=== PATIENT | female | born 1940 | race Caucasian/White ===

== ENCOUNTER → 2016-11-22 | Outpatient (CLI) | payer MEDICARE, OTHER | LOC: GMAM 15:16 | PROVIDERS: ATTEND Family Medicine | DX: N39.0 Urinary tract infection, site not specified (principal) ==

== ENCOUNTER → 2016-11-30 | Outpatient (CLI) | payer MEDICARE, OTHER | LOC: GMAM 14:58 | PROVIDERS: ATTEND Family Medicine | DX: I50.22 Chronic systolic (congestive) heart failure (principal); R07.89 Other chest pain ==

== ENCOUNTER → 2016-12-14 | Outpatient (CLI) | payer MEDICARE, OTHER | LOC: LAB.O 11:39 | PROVIDERS: ATTEND Internal Medicine Interventional Cardiology | DX: E03.9 Hypothyroidism, unspecified (principal) ==

== ENCOUNTER → 2017-01-07 | Outpatient (CLI) | payer MEDICARE, OTHER | END | disposition home or self-care (01) | LOC: GMAM 12:48 | PROVIDERS: ATTEND Family Medicine | DX: E55.9 Vitamin D deficiency, unspecified (principal) ==

== ENCOUNTER → 2017-05-09 | Outpatient (CLI) | payer MEDICARE, OTHER | END | disposition home or self-care (01) | LOC: GMAM 10:58 | PROVIDERS: ATTEND Family Medicine | DX: E53.8 Deficiency of other specified B group vitamins (principal); E55.9 Vitamin D deficiency, unspecified; N39.0 Urinary tract infection, site not specified ==

== ENCOUNTER 2017-05-24 19:38 | Emergency (ER) | payer MEDICARE, OTHER ==
[2017-05-24] MEDS ORDERED: HYDROcodone 5MG/APAP 325MG 1 EA TAB PO ONE (20:02)
[2017-05-24 20:20] VITALS: TEMP 98.2
--- NOTE | 2017-05-24 20:41 | RAD ---
EXAM DESCRIPTION: Hip,Right 2 Views (accession [id number]), Pelvis (accession [id number]) CLINICAL HISTORY: fall pain COMPARISON: None. FINDINGS: Two views of the right hip and frontal view of the pelvis were submitted. Calcifications within the pelvis may represent phleboliths. There is no acute fracture or dislocation. There is no radiopaque foreign body material. IMPRESSION: No acute abnormalities. Electronically signed by: Tyrone Galicia MD 05/24/2017 8:39 PM CDT
--- NOTE | 2017-05-24 20:41 | RAD ---
EXAM DESCRIPTION: Hip,Right 2 Views (accession [id number]), Pelvis (accession [id number]) CLINICAL HISTORY: fall pain COMPARISON: None. FINDINGS: Two views of the right hip and frontal view of the pelvis were submitted. Calcifications within the pelvis may represent phleboliths. There is no acute fracture or dislocation. There is no radiopaque foreign body material. IMPRESSION: No acute abnormalities. Electronically signed by: Tyrone Galicia MD 05/24/2017 8:39 PM CDT
--- NOTE | 2017-05-24 20:45 | RAD ---
EXAM DESCRIPTION: Ribs,Right 3 Views (accession [id number]), Scapula,Right (accession [id number]) CLINICAL HISTORY: fall pain COMPARISON: None. FINDINGS: Frontal view of the chest and two views of the right ribs were submitted. Cardiac silhouette is enlarged unchanged compared with the prior examination. There is atherosclerosis. Linear opacities within the lungs may represent scar. There is no focal parenchymal or pleural disease. There is no discrete displaced acute rib fracture. There is no discrete scapular fracture. IMPRESSION: No evidence of acute cardiopulmonary disease. Electronically signed by: Tyrone Galicia MD 05/24/2017 8:44 PM CDT
--- NOTE | 2017-05-24 20:45 | RAD ---
EXAM DESCRIPTION: Ribs,Right 3 Views (accession [id number]), Scapula,Right (accession [id number]) CLINICAL HISTORY: fall pain COMPARISON: None. FINDINGS: Frontal view of the chest and two views of the right ribs were submitted. Cardiac silhouette is enlarged unchanged compared with the prior examination. There is atherosclerosis. Linear opacities within the lungs may represent scar. There is no focal parenchymal or pleural disease. There is no discrete displaced acute rib fracture. There is no discrete scapular fracture. IMPRESSION: No evidence of acute cardiopulmonary disease. Electronically signed by: Tyrone Galicia MD 05/24/2017 8:44 PM CDT
--- NOTE | 2017-05-24 20:52 | RAD ---
EXAM DESCRIPTION: Lumbar Spine 3 Views CLINICAL HISTORY: 76 years ,Female fall pain COMPARISON: MRI 07/09/2015. TECHNIQUE: Three view FINDINGS: Straightening of the normal lordosis. There is narrowing of lumbar disc interspaces at L4-5 and particularly at L5-S1 where there is vacuum disc phenomenon and subchondral sclerosis. This appears similar to the previous examination. There is facet arthropathy at L4-5 and L5-S1. No acute fracture noted. There is bony demineralization and vascular calcification. Postsurgical changes in the left pelvis and in the gallbladder fossa. IMPRESSION: Degenerative changes at L4-5 and L5-S1 No acute fracture noted Electronically signed by: Gloria Childs 05/24/2017 8:50 PM CDT
--- NOTE | 2017-05-24 21:07 | ED.PDOC ---
History of Present Illness - General Chief Complaint: Trauma Stated Complaint: hip pain after morning fall Time Seen by Provider: 05/24/17 19:39 Source: patient Exam Limitations: no limitations - History of Present Illness Initial Comments: the patient is a 76-year-old female presenting to the emergency room after having fallen earlier in the day. She tried to catch herself but ended up hitting her right lateral torso on a stove while going down. She is having some pain over the right scapula as well as the right lateral rib cage. She is having some pain over the point of the iliac wing on the right. She is having some pain over the greater trochanter on the right. She has been ambulatory. She is breathing without difficulty. Vital signs are stable. There are no lacerations. I see no visible bruising. She does have some soreness to palpation over these areas. I feel no crepitus. No head injury and no neck pain. She is having some mild low back spasms as well. 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 Timing/Duration: 4-6 hours Severity: moderate Improving Factors: immobilization Worsening Factors: movement Associated Symptoms: chest pain Allergies/Adverse Reactions: Allergies Aspirin Allergy (Verified 09/11/14 17:41) Doxycycline Allergy (Verified 01/08/15 22:37) Influenza Vaccines Allergy (Verified 09/11/14 17:41) Macrolides Allergy (Verified 09/11/14 17:41) Penicillins Allergy (Verified 09/11/14 17:41) Risedronate [From Actonel] Allergy (Verified 09/11/14 17:41) Salicylates Allergy (Verified 09/11/14 17:41) Sulfa Drugs Allergy (Verified 09/11/14 17:41) Diphenhydramine [From Benadryl] Adverse Reaction (Verified 09/11/14 17:41) Lisinopril Adverse Reaction (Verified 09/11/14 17:41) Metformin and Related Adverse Reaction (Verified 09/11/14 17:41) Metoclopramide [From Reglan] Adverse Reaction (Verified 09/11/14 17:41) Raloxifene [From Evista] Adverse Reaction (Verified 09/11/14 17:41) Home Medications: Ambulatory Orders Allopurinol [Zyloprim] 300 mg PO BEDTIME 01/09/15 Flecainide [Tambocor] 50 mg PO BEDTIME 01/09/15 Gabapentin [Neurontin] 300 mg PO BEDTIME 01/09/15 Insulin Glargine [Lantus Solostar] 20 unit SC BEDTIME 01/09/15 Triamterene & Hydrochlorothiaz [Triamterene/Hydrochloroth 37.5-25 mg] 0.5 tab PO BEDTIME 01/09/15 Warfarin Sodium 2.5 mg PO MOWEFR@209901/09/15 Warfarin Sodium 5 mg PO SUTUTHSA@209901/09/15 Fluticasone/Salmeterol 250/50 [Advair 250/50 Diskus] 1 puff INH DAILY PRN Nitroglycerin 0.4 mg Tab [Nitrostat] 1 ea SL DAILY PRN 07/14/15 Tiotropium [place] Monohydrate [Spiriva Handihaler] 1 puff IN DAILY PRN Cephalexin [Keflex] 500 mg PO TID #21 cap 07/16/15 Digoxin [Lanoxin Tab] 0.125 mg PO DAILY@1200 #30 tab 07/16/15 Metoprolol Tartrate [Lopressor] 25 mg PO 1800 #30 tab 07/16/15 Metoprolol Tartrate [Lopressor] 50 mg PO DAILYBK #30 tab 07/16/15 Famotidine [Pepcid Tab] 20 mg PO DAILY #30 tab 11/27/15 Gsvlwytotjbwu-Brqr-Iuvibxadua [Fioricet] 1 ea PO Q8H PRN #21 tab 05/24/17 Review of Systems - Review of Systems Constitutional: States: no symptoms reported EENTM: States: no symptoms reported Respiratory: States: no symptoms reported Cardiology: States: chest pain Gastrointestinal/Abdominal: States: no symptoms reported Genitourinary: States: no symptoms reported Musculoskeletal: States: back pain, joint pain Skin: States: no symptoms reported Neurological: States: no symptoms reported Endocrine: States: no symptoms reported All other Systems: No Change from Baseline Past Medical History (General) - Patient Medical History Hx Seizures: No Hx Stroke: No Hx Asthma: No Hx of COPD: Yes Hx Cardiac Disorders: Yes - a-fib Hx Congestive Heart Failure: No Hx Pacemaker: No Hx Hypertension: Yes Hx Diabetes: Yes Hx MRSA: Yes - Nasal Swab 2014 Surgical History: cholecystectomy, Hysterectomy - Vaccination History Hx Tetanus, Diphtheria Vaccination: Yes Hx Influenza Vaccination: Yes Hx Pneumococcal Vaccination: Yes - Social History Hx Tobacco Use: No Hx Chewing Tobacco Use: No Hx Alcohol Use: No Hx Substance Use: No Hx Substance Use Treatment: No Hx Depression: No Hx Physical Abuse: No Hx Emotional Abuse: No Hx Suspected Abuse: No - Female History Patient is a Female of Child Bearing Age (10 -59 yrs old): No Patient : No Family Medical History - Family History Mother Living Status: Hx Cardiac Disease: Yes Father Living Status: Hx Cardiac Disease: Yes Hx Family;Other: of brain aneurysm Physical Exam - Physical Exam General Appearance: Alert, No apparent distress Eye Exam: bilateral normal Ears, Nose, Throat: hearing grossly normal, normal ENT inspection, normal pharynx Neck: full range of motion, supple, normal inspection Respiratory: lungs clear, normal breath sounds, no respiratory distress, no accessory muscle use, other - right lateral chest wall is uncomfortable to palpation. No obvious crepitus. No obvious deformity. No bruising and no lacerations. Cardiovascular/Chest: normal peripheral pulses, regular rate, rhythm, no edema Peripheral Pulses: radial,right: 2+, radial,left: 2+, dorsalis pedis,right: 2+, dorsalis pedis,left: 2+, posterior tibialis,right: 2+, posterior tibialis,left: 2+ Gastrointestinal/Abdominal: non tender, soft Rectal Exam: deferred Back Exam: other - mild paraspinal discomfort palpation adjacent to L3-L4 bilaterally. No step-off is noted. No spinal tenderness. Extremity: normal range of motion, normal inspection, no pedal edema, normal capillary refill, other - see history of present illness Neurologic: reporter II-XII nml as tested, alert, normal mood/affect, oriented x 3 Skin Exam: normal color - numerous chronic lesions and moles are present. Comments: Vital Signs - 24 hr 05/24/17 20:15 Temperature 98.2 F Pulse Rate [ 71 Left] Respiratory 20 Rate Blood Pressure 135/59 [Right Arm] O2 Sat by Pulse 95 Oximetry Progress - Progress Progress: 05/24/17 21:09 the patient is a 76-year-old female presenting to the emergency room secondary to a fall with multiple areas of discomfort secondary to the fall. X- rays of the right scapula, chest, pelvis and hip as well as the lumbar spine show no evidence of any new fracture or dislocation. She does have chronic arthritic changes. The patient will be written for Fioricet for as needed use over the next few days for pain control. Additionally she can take one Aleve twice daily with food for the next 2 days to help reduce discomfort. Topical heat may help reduce discomfort. She needs to ambulate carefully to prevent further falls.. She should probably follow up with her primary care doctor early next week. - Results/Orders Results/Orders: x-rays of the lumbar spine, right scapula, right rib cage, pelvis and right hip show no evidence of acute fracture or dislocation. No pneumothorax. Departure - Departure Clinical Impression: Contusion of rib Qualifiers: Encounter type: initial encounter Laterality: right Qualified Code(s): S20.211A - Contusion of right front wall of thorax, initial encounter Fall in home Qualifiers: Encounter type: initial encounter Qualified Code(s): W19.XXXA - Unspecified fall, initial encounter Disposition: Discharge to Home or Self Care Condition: Fair Departure Forms: ED Discharge - Pt. Copy, Patient Portal Self Enrollment Diet: diabetic diet Activity: increase activity as tolerated Referrals: Deepak Ramsay MD [Primary Care Provider] - 1-2 Weeks Prescriptions: Tmtrxykxohsmi-Ubcn-Tvehyfdruw [Fioricet] 1 ea PO Q8H PRN #21 tab PRN Reason: Pain Home Medications: Ambulatory Orders Allopurinol [Zyloprim] 300 mg PO BEDTIME 01/09/15 Flecainide [Tambocor] 50 mg PO BEDTIME 01/09/15 Gabapentin [Neurontin] 300 mg PO BEDTIME 01/09/15 Insulin Glargine [Lantus Solostar] 20 unit SC BEDTIME 01/09/15 Triamterene & Hydrochlorothiaz [Triamterene/Hydrochloroth 37.5-25 mg] 0.5 tab PO BEDTIME 01/09/15 Warfarin Sodium 2.5 mg PO MOWEFR@209901/09/15 Warfarin Sodium 5 mg PO SUTUTHSA@209901/09/15 Fluticasone/Salmeterol 250/50 [Advair 250/50 Diskus] 1 puff INH DAILY PRN Nitroglycerin 0.4 mg Tab [Nitrostat] 1 ea SL DAILY PRN 07/14/15 Tiotropium [place] Monohydrate [Spiriva Handihaler] 1 puff IN DAILY PRN Cephalexin [Keflex] 500 mg PO TID #21 cap 07/16/15 Digoxin [Lanoxin Tab] 0.125 mg PO DAILY@1200 #30 tab 07/16/15 Metoprolol Tartrate [Lopressor] 25 mg PO 1800 #30 tab 07/16/15 Metoprolol Tartrate [Lopressor] 50 mg PO DAILYBK #30 tab 07/16/15 Famotidine [Pepcid Tab] 20 mg PO DAILY #30 tab 11/27/15 Bwiercgxtngun-Ymlh-Fhpyspxvrn [Fioricet] 1 ea PO Q8H PRN #21 tab 05/24/17 Additional Instructions: the patient is a 76-year-old female presenting to the emergency room secondary to a fall with multiple areas of discomfort secondary to the fall. X- rays of the right scapula, chest, pelvis and hip as well as the lumbar spine show no evidence of any new fracture or dislocation. She does have chronic arthritic changes. The patient will be written for Fioricet for as needed use over the next few days for pain control. Additionally she can take one Aleve twice daily with food for the next 2 days to help reduce discomfort. Topical heat may help reduce discomfort. She needs to ambulate carefully to prevent further falls.. She should probably follow up with her primary care doctor early next week.
[2017-05-24 21:32] VITALS: BP 177/85; O2SAT 96
== END 2017-05-24 21:31 | disposition home or self-care (01) ==
LOC: ER 19:38
DX: S20.211A Contusion of right front wall of thorax, initial encounter (principal); M47.896 Other spondylosis, lumbar region; J44.9 Chronic obstructive pulmonary disease, unspecified; I48.91 Unspecified atrial fibrillation; I10 Essential (primary) hypertension; E11.9 Type 2 diabetes mellitus without complications; Z79.02 Long term (current) use of antithrombotics/antiplatelets; Z79.4 Long term (current) use of insulin; Z79.899 Other long term (current) drug therapy; Z88.0 Allergy status to penicillin; Z88.2 Allergy status to sulfonamides; Z88.7 Allergy status to serum and vaccine; Z88.8 Allergy status to other drugs, medicaments and biological substances; W19.XXXA Unspecified fall, initial encounter; Y92.9 Unspecified place or not applicable

== ENCOUNTER → 2017-06-07 | Outpatient (CLI) | payer MEDICARE, OTHER | LOC: GMAM 17:02 | PROVIDERS: ATTEND Family Medicine | DX: R94.5 Abnormal results of liver function studies (principal) ==

== ENCOUNTER → 2017-06-17 | Outpatient (CLI) | payer MEDICARE, OTHER ==
--- NOTE | 2017-06-20 08:48 | US ---
EXAM DESCRIPTION: Thyroid CLINICAL HISTORY: 76 years Female, ABNORMAL THYROID FINDINGS COMPARISON: None. FINDINGS: The right lobe measures 5.7 x 2.1 x 2.2 cm and the left lobe measures 5.2 x 2.0 x 2.1 cm. The isthmus is 4 mm in thickness and overall thyroid size appears to be mildly enlarged. Multiple nodules are present bilaterally. On the right, in the mid thyroid is a wider than tall heterogeneous slightly spongiform oval 1.3 x 1.2 x 1.1 cm nodule. In the upper pole is a wider than tall oval hypoechoic slightly heterogeneous 1.2 x 1.0 x 0.6 cm nodule. In the lower pole, there is a rounded 1.0 x 1.0 x 0.9 cm hypoechoic nodule with specular echoes suspicious for microcalcifications. Although this represents the smallest nodule in the right lobe I would consider this the most suspicious nodule. On the left, in the mid lobe anteriorly and medially adjacent to the isthmus is a wider than tall 1.7 x 1.3 x 1.2 cm slightly lobulated hypoechoic nodule. The margin is slightly irregular in shape. Also in the mid lobe is a wider than tall 1.5 x 0.7 x 0.8 cm spongiform-appearing nodule that is benign in appearance. IMPRESSION: 1. Thyromegaly with multinodular gland with multiple nodules bilaterally. 2. Fine-needle aspiration of the smaller right lower pole nodule with suspected microcalcifications measuring 1 cm in maximal diameter is recommended as well as the larger 1.7 cm left lobe nodule medially in the mid left lobe with a slightly irregular border that is loculated in a heterogeneous architecture. Electronically signed by: Deepak Bassett MD 06/20/2017 8:47 AM CDT
== END | disposition home or self-care (01) ==
LOC: US 09:39
PROVIDERS: ATTEND Family Medicine
DX: R94.6 Abnormal results of thyroid function studies (principal)

== ENCOUNTER → 2017-08-26 | Outpatient (CLI) | payer MEDICARE, OTHER | END | disposition home or self-care (01) | LOC: GMAM 10:28 | PROVIDERS: ATTEND Family Medicine | DX: E53.8 Deficiency of other specified B group vitamins (principal) ==

== ENCOUNTER → 2017-09-07 | Outpatient (CLI) | payer MEDICARE, OTHER | END | disposition home or self-care (01) | LOC: LAB.O 13:46 | PROVIDERS: ATTEND Otolaryngology | DX: E04.2 Nontoxic multinodular goiter (principal) ==

== ENCOUNTER → 2017-10-21 | Outpatient (CLI) | payer MEDICARE, OTHER ==
--- NOTE | 2017-10-22 04:13 | RAD ---
Examination: XR HIP 2 OR MORE VIEWS dated 10/21/2017 9:14 AM MATERIAL REQUIREMENTS WORKER History: PAIN IN LEFT HIP Comparison: None Technique: Two views of the left hip FINDINGS AND IMPRESSION: There is a minimal joint space narrowing of the left hip. There are otherwise no significant arthritic changes. No acute fracture or dislocation. Electronically signed by: Matti Mckeon MD 10/22/2017 4:12 AM MATERIAL REQUIREMENTS WORKER
--- NOTE | 2017-10-22 04:14 | RAD ---
Examination: XR PELVIS 1-2 VIEWS dated 10/21/2017 9:14 AM INFORMATION SYSTEMS MANAGER History: PAIN IN LEFT HIP Comparison: 05/24/2017 Technique: Frontal view of the pelvis FINDINGS AND IMPRESSION: There are minimal degenerative changes of both hips without acute fracture or dislocation. Symmetric SI joints. Intact pelvic ring. Surgical material projecting over the left pelvis. Electronically signed by: Matti Mckeon MD 10/22/2017 4:13 AM INFORMATION SYSTEMS MANAGER
== END ==
LOC: RAD 09:13
PROVIDERS: ATTEND Orthopaedic Surgery
DX: M25.552 Pain in left hip (principal)

== ENCOUNTER 2017-11-11 05:51 | Day surgery (SDC) | payer MEDICARE, OTHER ==
--- NOTE | 2017-11-10 10:57 | HP ---
CHIEF COMPLAINT: Left hip pain. HISTORY OF PRESENT ILLNESS: Ms. Ramsay is a 77-year-old female with a history of pain in the left hip. The pain seems to arise from both lateral aspects for which we have given her an injection into the bursa and it helped, but also from the hip joint proper. Because of her ongoing pain from the joint, she has requested an injection intraarticularly. After discussing the risks, benefits and alternatives to that, the patient has given informed consent. PAST SURGICAL HISTORY: 1. Hysterectomy. 2. Partial colectomy. MEDICATIONS: 1. Metoprolol. 2. Warfarin. 3. Allopurinol. 4. Gabapentin. 5. Amiodarone. 6. Triamterene. 7. Lantus. 8. Novair disks. 9. Spiriva. ALLERGIES: NO KNOWN DRUG ALLERGIES. CODE STATUS: Full code. IMMUNIZATIONS: Up to date. SOCIAL HISTORY: The patient does not drink, smoke or use any illicit drugs. FAMILY HISTORY: None pertinent to today's complaint. REVIEW OF SYSTEMS: Negative except as indicated in the History of Present Illness. PHYSICAL EXAMINATION: VITAL SIGNS: Blood pressure 112/61. Pulse 70. Height 5'6". Weight 186. MENTAL STATUS: The patient is awake, alert, and is able to give a good history and participate in the physical. The patient is oriented to person, place and time. SKIN: Normal tone and turgor. MUSCULOSKELETAL: She has pain with flexion of the hip beyond about 90 degrees, but we can get it to at least 120. She has pain with internal rotation and internal rotation is limited. She has intact sensation throughout and it is warm and well perfused. strength is 5/5 throughout the extremity. IMAGING: X-rays show some joint space narrowing. ASSESSMENT: 1. Arthritis of the hip. 2. Bursitis of the hip. PLAN: The plan at this point is for her to undergo injection of the hip. We have discussed the risks, benefits, and alternatives to that and the patient has given informed consent. #[id number] [facility]
[2017-11-11] MEDS ORDERED: LACTATED RINGERS 1,000 ML ONE (06:11)
[2017-11-11 07:40] VITALS: O2SAT 96
[2017-11-11] MEDS ORDERED: fentaNYL CITRATE INJ 50 MCG/ML AMP ONE (08:25)
[2017-11-11] MEDS ORDERED: BUPIVACAINE 0.25% W/EPI 50 ML VIAL INJ ONE (08:31)
[2017-11-11] MEDS ORDERED: methylPREDNISolone ACETATE 80 MG/ML VIAL ONE (08:31)
[2017-11-11] MEDS ORDERED: LIDOCAINE 1% 50 ML VIAL INJ ONE (08:31)
[2017-11-11] MEDS ORDERED: PROPOFOL 200 MG/20 ML VIAL IV ONE (09:00)
[2017-11-11] MEDS ORDERED: LIDOCAINE 1% 10 ML VIAL INJ ONE (09:00)
[2017-11-11 10:19] VITALS: TEMP 98.2
--- NOTE | 2017-11-11 10:35 | OP ---
PREOPERATIVE DIAGNOSIS: 1. Right hip arthritis. POSTOPERATIVE DIAGNOSIS: 1. Right hip arthritis. PROCEDURE: 1. Intraarticular injection of the right hip. SURGEON: Yoandy Marrero MD. MOTION PICTURE PROJECTIONIST: Deion Barajas CST, -C. ANESTHESIA: Conscious sedation. COMPLICATIONS: None. FINDINGS: Arthritis of the right hip. INDICATION FOR PROCEDURE: Ms. Ramsay has a history of pain which she localizes both in the lateral aspect of the hip as well as the groin. She had an injection of the greater trochanteric bursa in clinic which helped but she continued to have pain in her groin. Now, because of her ongoing pain, she requested injection intraarticular. After discussing the risks, benefits and alternatives to that, the patient has given informed consent for that. PROCEDURE: The patient was brought to the Operating Room and placed in supine position. Sedation was administered and the hip was flexed, abducted and externally rotated. The groin was prepped and through a medial portal, an 18- gauge needle was passed into the hip under fluoroscopic imaging. Following confirmation of placement of the needle, a combination of lidocaine and Depo- Medrol was injected. The needle was removed. Pressure was held and a sterile bandage was placed. The patient was then taken back to the Day Surgery Unit. FOLLOWUP: She will followup with us in about 10 days. [facility][id number]
[2017-11-11 10:50] VITALS: BP 114/66
== END 2017-11-11 10:00 | disposition home or self-care (01) ==
LOC: AMB 05:51
PROVIDERS: ATTEND Orthopaedic Surgery
DX: M13.851 Other specified arthritis, right hip (principal); M71.551 Other bursitis, not elsewhere classified, right hip; I10 Essential (primary) hypertension; I25.10 Atherosclerotic heart disease of native coronary artery without angina pectoris; E11.9 Type 2 diabetes mellitus without complications; E66.9 Obesity, unspecified; J44.9 Chronic obstructive pulmonary disease, unspecified; E89.0 Postprocedural hypothyroidism; Z87.891 Personal history of nicotine dependence; Z90.49 Acquired absence of other specified parts of digestive tract; Z79.01 Long term (current) use of anticoagulants; Z79.4 Long term (current) use of insulin; Z79.899 Other long term (current) drug therapy
CPT/HCPCS: 01200; 20610; 36416; 76000; 82948; 87070; J1030; J3010; J3490; J7120

== ENCOUNTER 2017-11-20 12:12 | Emergency (ER) | payer MEDICARE, OTHER ==
[2017-11-20] MEDS ORDERED: IPRATROPIUM/ALBUTEROL 3 ML VIAL NEB ONE (12:45)
[2017-11-20 13:24] VITALS: TEMP 98.7
--- NOTE | 2017-11-20 13:50 | RAD ---
PROCEDURE: Chest,2 Views CLINICAL HISTORY: cough sob 1 week INDICATION: Same as above COMPARISON: 11/27/2015 TECHNIQUE: PA and and lateral chest radiographs were obtained. FINDINGS: There is minimal discoid atelectasis/infiltrate in the lingula of the left lung There are no pneumothoraces or pleural effusions. The pulmonary vascularity is normal The cardiomediastinal silhouette is unremarkable for patient's age and sex. IMPRESSION: There is minimal discoid atelectasis/infiltrate in the lingula of the left lung Electronically signed by: Erasmo Norris MD 11/20/2017 1:49 PM [facility] Workstation: [id number]
--- NOTE | 2017-11-20 14:19 | ED.PDOC ---
History of Present Illness - General Chief Complaint: Respiratory Problem Stated Complaint: I cant stop coughing Time Seen by Provider: 11/20/17 12:14 Source: patient Exam Limitations: no limitations - History of Present Illness Initial Comments: the patient is a 77-year-old female presenting to the emergency room secondary to cough and mild shortness of breath and been present for more than one week. She did see her primary care doctor earlier in the week and was written for Levaquin which she has been taking. The patient does have multiple drug allergies which does limit her treatment options. She does have a history of COPD and asthma. She ran out of her breathing treatments. She is oxygenating well and in no acute distress. She seems more concerned than anything. She does have a mildly productive cough. No chest pain. No palpitations. No syncope or near syncope. No clinical evidence of sepsis. Timing/Duration: 1 week Severity: moderate Improving Factors: nothing Worsening Factors: nothing Associated Symptoms: cough, fever/chills, malaise Allergies/Adverse Reactions: Allergies Aspirin Allergy (Verified 09/11/14 17:41) Azithromycin [From Z-Newton] Allergy (Verified 11/10/17 10:09) Doxycycline Allergy (Verified 01/08/15 22:37) Influenza Vaccines Allergy (Verified 09/11/14 17:41) Macrolides Allergy (Verified 09/11/14 17:41) Penicillins Allergy (Verified 09/11/14 17:41) Risedronate [From Actonel] Allergy (Verified 09/11/14 17:41) Salicylates Allergy (Verified 09/11/14 17:41) Sulfa Drugs Allergy (Verified 09/11/14 17:41) Diphenhydramine [From Benadryl] Adverse Reaction (Verified 09/11/14 17:41) Lisinopril Adverse Reaction (Verified 09/11/14 17:41) Metformin and Related Adverse Reaction (Verified 09/11/14 17:41) Metoclopramide [From Reglan] Adverse Reaction (Verified 09/11/14 17:41) Raloxifene [From Evista] Adverse Reaction (Verified 09/11/14 17:41) Home Medications: Ambulatory Orders Allopurinol [Zyloprim] 300 mg PO BEDTIME 01/09/15 Gabapentin [Neurontin] 300 mg PO BEDTIME 01/09/15 Insulin Glargine [Lantus Solostar] 20 unit SC BEDTIME 01/09/15 Triamterene & Hydrochlorothiaz [Triamterene/Hydrochloroth 37.5-25 mg] 0.5 tab PO BEDTIME 01/09/15 Warfarin Sodium 2.5 mg PO QPM 01/09/15 Nitroglycerin 0.4 mg Tab [Nitrostat] 1 ea SL PRN PRN 07/14/15 Metoprolol Tartrate [Lopressor] 50 mg PO DAILYBK #30 tab 07/16/15 Amiodarone HCl 2 tablet PO BEDTIME 11/10/17 Review of Systems - Review of Systems Constitutional: States: fever - ow-grade, malaise EENTM: States: nose congestion, throat pain - mild Respiratory: States: cough, short of breath Cardiology: States: no symptoms reported Gastrointestinal/Abdominal: States: no symptoms reported Genitourinary: States: no symptoms reported Musculoskeletal: States: no symptoms reported Skin: States: no symptoms reported Neurological: States: anxiety Endocrine: States: no symptoms reported All other Systems: No Change from Baseline Past Medical History (General) - Patient Medical History Hx Seizures: No Hx Stroke: No Hx Asthma: No Hx of COPD: Yes Hx Cardiac Disorders: Yes Hx Congestive Heart Failure: No Hx Pacemaker: No Hx Hypertension: Yes Hx Diabetes: Yes Hx MRSA: No Surgical History: appendectomy, cholecystectomy, Hysterectomy - Vaccination History Hx Tetanus, Diphtheria Vaccination: Yes Hx Influenza Vaccination: Yes Hx Pneumococcal Vaccination: Yes - Social History Hx Tobacco Use: Yes Hx Chewing Tobacco Use: No Hx Alcohol Use: No Hx Substance Use: No Hx Substance Use Treatment: No Hx Depression: No Feels Threatened In Home Enviroment: No Feels Threatened In a Relationship: No Hx Physical Abuse: No Hx Emotional Abuse: No Hx Suspected Abuse: No - Female History Patient is a Female of Child Bearing Age (10 -59 yrs old): No Patient : No Family Medical History - Family History Mother Living Status: Hx Cardiac Disease: Yes Father Living Status: Hx Cardiac Disease: Yes Hx Family;Other: of brain aneurysm Physical Exam - Physical Exam General Appearance: Alert, Anxious, No apparent distress Eye Exam: bilateral normal Ears, Nose, Throat: hearing grossly normal, normal pharynx, nasal congestion - mild Neck: full range of motion, supple Respiratory: no respiratory distress, no accessory muscle use, rhonchi - scattered, wheezing - scattered but with good air movement Cardiovascular/Chest: normal peripheral pulses, regular rate, rhythm, no edema Peripheral Pulses: radial,right: 2+, radial,left: 2+, dorsalis pedis,right: 2+, dorsalis pedis,left: 2+ Gastrointestinal/Abdominal: non tender, soft Rectal Exam: deferred Back Exam: normal inspection, no CVA tenderness, no vertebral tenderness Extremity: normal range of motion, non-tender, normal inspection, no pedal edema , normal capillary refill 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 The patient does appear to be having a mild COPD or asthma exacerbation. As she has just recently received a steroid injection we are not going to add additional steroids on board. The patient is to continue her Levaquin. We are going to add Keflex 3 times daily for the next 5 days in case current therapy is meeting resistance. Additionally I'm going to write the patient for duonebs to be used every 6 hours and as needed for the next week. She is not hypoxic or in any respiratory distress and there is no evidence of any sepsis. Chest x-ray indicates possibly a small lingular pneumonia. She does need to follow up with her primary care doctor early this coming week for reevaluation to make sure she is improving with the treatment. ER warnings were given for any significant worsening. Departure - Departure Clinical Impression: Lingular pneumonia Asthma with exacerbation Qualifiers: Asthma severity: unspecified severity Qualified Code(s): J45.901 - Unspecified asthma with (acute) exacerbation Disposition: Discharge to Home or Self Care Condition: Fair Departure Forms: ED Discharge - Pt. Copy, Patient Portal Self Enrollment Instructions: DI for Pneumonia -- Adult Diet: diabetic diet Activity: increase activity as tolerated Referrals: Deepak Ramsay MD [Primary Care Provider] - 1-2 Days Home Medications: Ambulatory Orders Allopurinol [Zyloprim] 300 mg PO BEDTIME 01/09/15 Gabapentin [Neurontin] 300 mg PO BEDTIME 01/09/15 Insulin Glargine [Lantus Solostar] 20 unit SC BEDTIME 01/09/15 Triamterene & Hydrochlorothiaz [Triamterene/Hydrochloroth 37.5-25 mg] 0.5 tab PO BEDTIME 01/09/15 Warfarin Sodium 2.5 mg PO QPM 01/09/15 Nitroglycerin 0.4 mg Tab [Nitrostat] 1 ea SL PRN PRN 07/14/15 Metoprolol Tartrate [Lopressor] 50 mg PO DAILYBK #30 tab 07/16/15 Amiodarone HCl 2 tablet PO BEDTIME 11/10/17 Additional Instructions: the patient is a 77-year-old female presenting to the emergency room secondary to persistent cough. The patient does appear to be having a mild COPD or asthma exacerbation. As she has just recently received a steroid injection we are not going to add additional steroids on board. The patient is to continue her Levaquin. We are going to add Keflex 3 times daily for the next 5 days in case current therapy is meeting resistance. Additionally I'm going to write the patient for duonebs to be used every 6 hours and as needed for the next week. She is not hypoxic or in any respiratory distress and there is no evidence of any sepsis. Chest x-ray indicates possibly a small lingular pneumonia. She does need to follow up with her primary care doctor early this coming week for reevaluation to make sure she is improving with the treatment. ER warnings were given for any significant worsening. she should also have her blood thinner levels rechecked later this week.
[2017-11-20 14:35] VITALS: BP 136/66; O2SAT 96
== END 2017-11-20 14:30 | disposition home or self-care (01) ==
LOC: ER 12:12
DX: J18.8 Other pneumonia, unspecified organism (principal); J45.901 Unspecified asthma with (acute) exacerbation; J44.9 Chronic obstructive pulmonary disease, unspecified; I10 Essential (primary) hypertension; E11.9 Type 2 diabetes mellitus without complications; Z87.891 Personal history of nicotine dependence; Z79.4 Long term (current) use of insulin; Z79.01 Long term (current) use of anticoagulants
CPT/HCPCS: 71020; 87502; 94640; J7620

== ENCOUNTER → 2017-12-12 | Outpatient (CLI) | payer MEDICARE, OTHER ==
--- NOTE | 2017-12-13 10:13 | RAD ---
EXAM DESCRIPTION: Chest,2 Views CLINICAL HISTORY: 69-year-old, female, COPD. COMPARISON: Chest radiograph dated November 20, 2017. TECHNIQUE: Frontal and lateral views of the chest. FINDINGS: Cardiomediastinal silhouette and pulmonary vascularity are within normal limits. Lung volumes are hyperinflated, compatible with COPD changes. Increased linear opacities in the left lung base and retrocardiac region may represent atelectasis versus infiltrate. Right costophrenic angle is mildly elevated relative to the left. Bilateral costophrenic angles are sharp. No pneumothorax. Degenerative changes of the thoracic spine. IMPRESSION: 1. Increased linear opacities in the left lung base and retrocardiac region may represent atelectasis versus infiltrate. Please correlate clinically. 2. Other chronic findings as above. Electronically signed by: Joel Santiago MD 12/13/2017 10:11 AM [facility]
== END ==
LOC: RAD 13:06
PROVIDERS: ATTEND Internal Medicine
DX: J44.9 Chronic obstructive pulmonary disease, unspecified (principal); R06.09 Other forms of dyspnea

== ENCOUNTER → 2017-12-26 | Outpatient (CLI) | payer MEDICARE, OTHER | LOC: GMAM 14:49 | PROVIDERS: ATTEND Family Medicine | DX: E53.8 Deficiency of other specified B group vitamins (principal) ==

== ENCOUNTER → 2018-03-09 | Outpatient (CLI) | payer MEDICARE, OTHER ==
--- NOTE | 2018-03-11 09:06 | US ---
EXAM DESCRIPTION: Venous,Lower Extremity LT CLINICAL HISTORY: EDEMA COMPARISON: None Available. TECHNIQUE: Left lower extremity venous duplex FINDINGS: Doppler evaluation of the left lower extremity deep veins was performed. Normal color flow is seen in the common femoral, superficial femoral, profunda femoral and greater saphenous veins. Normal flow is seen in the popliteal vein and veins below the knee in the calf. Normal venous compressibility and flow augmentation. IMPRESSION: Negative for evidence of deep venous thrombosis on left lower extremity venous Doppler sonogram. Electronically signed by: Ghanshyam Rosales MD 03/11/2018 9:05 AM CDT
== END ==
LOC: US 15:58
PROVIDERS: ATTEND Family Medicine
DX: R60.0 Localized edema (principal)

== ENCOUNTER → 2018-03-28 | Outpatient (CLI) | payer MEDICARE, OTHER | LOC: GMAM 12:15 | PROVIDERS: ATTEND Family Medicine | DX: E53.8 Deficiency of other specified B group vitamins (principal); M10.9 Gout, unspecified ==

== ENCOUNTER 2018-05-17 16:24 | Emergency (ER) | payer MEDICARE, OTHER ==
[2018-05-17 17:11] VITALS: TEMP 98.7; O2SAT 94
--- NOTE | 2018-05-17 17:41 | RAD ---
EXAM DESCRIPTION: Toes,Right CLINICAL HISTORY: 2nd digit distal trauma COMPARISON: None FINDINGS: 3 view(s) submitted. No fracture or dislocation is identified. Bone marrow attenuation is unremarkable. No radiopaque foreign body is identified. IMPRESSION: No acute fracture or dislocation. Electronically signed by: Deion Garcia 05/17/2018 5:40 PM CDT
[2018-05-17] MEDS ORDERED: CLINDAMYCIN HCL CAP 150 MG CAP PO ONE (18:18)
--- NOTE | 2018-05-17 18:20 | ED.PDOC ---
History of Present Illness - General Chief Complaint: General Stated Complaint: general Time Seen by Provider: 05/17/18 17:06 Source: patient Exam Limitations: no limitations - History of Present Illness Initial Comments: The patient is a 77-year-old female presenting to the emergency room after having dropped a can of fruit cocktail on her toe while getting something out of the pantry. He can hit the tip of the second digit of the right foot causing a significant hematoma under the nail. She does take blood thinners so it did bleed significantly. The bleeding has largely stopped at this point. She is a diabetic and does have concern for infection. No other injuries. There is no real deformity of the toe. The base of the nail is lifted a little but is not lifted out of the nail bed. Timing/Duration: momentarily Severity: moderate Improving Factors: nothing Worsening Factors: nothing Associated Symptoms: denies symptoms Allergies/Adverse Reactions: Allergies Aspirin Allergy (Verified 05/17/18 17:16) Azithromycin [From Z-Newton] Allergy (Verified 05/17/18 17:16) Doxycycline Allergy (Verified 05/17/18 17:16) Influenza Vaccines Allergy (Verified 05/17/18 17:16) Macrolides Allergy (Verified 05/17/18 17:16) Penicillins Allergy (Verified 05/17/18 17:16) Risedronate [From Actonel] Allergy (Verified 05/17/18 17:16) Salicylates Allergy (Verified 05/17/18 17:16) Sulfa Drugs Allergy (Verified 05/17/18 17:16) Diphenhydramine [From Benadryl] Adverse Reaction (Verified 05/17/18 17:16) Lisinopril Adverse Reaction (Verified 09/11/14 17:41) Metformin and Related Adverse Reaction (Verified 09/11/14 17:41) Metoclopramide [From Reglan] Adverse Reaction (Verified 09/11/14 17:41) Raloxifene [From Evista] Adverse Reaction (Verified 09/11/14 17:41) Home Medications: Ambulatory Orders Allopurinol [Zyloprim] 300 mg PO BEDTIME 01/09/15 Gabapentin [Neurontin] 300 mg PO BEDTIME 01/09/15 Insulin Glargine [Lantus Solostar] 20 unit SC BEDTIME 01/09/15 Triamterene & Hydrochlorothiaz [Triamterene/Hydrochloroth 37.5-25 mg] 0.5 tab PO BEDTIME 01/09/15 Warfarin Sodium 2.5 mg PO QPM 01/09/15 Nitroglycerin 0.4 mg Tab [Nitrostat] 1 ea SL PRN PRN 07/14/15 Metoprolol Tartrate [Lopressor] 50 mg PO DAILYBK #30 tab 07/16/15 Amiodarone HCl 2 tablet PO BEDTIME 11/10/17 Clindamycin HCl 300 mg PO Q12HR #10 cap 05/17/18 Review of Systems - Review of Systems Constitutional: States: no symptoms reported EENTM: States: no symptoms reported Respiratory: States: no symptoms reported Cardiology: States: no symptoms reported Gastrointestinal/Abdominal: States: no symptoms reported Genitourinary: States: no symptoms reported Musculoskeletal: States: see HPI Skin: States: see HPI Neurological: States: no symptoms reported Endocrine: States: no symptoms reported All other Systems: No Change from Baseline Past Medical History (General) - Patient Medical History Hx Seizures: No Hx Stroke: No Hx Asthma: No Hx of COPD: Yes Hx Cardiac Disorders: Yes Hx Congestive Heart Failure: No Hx Pacemaker: No Hx Hypertension: Yes Hx Diabetes: Yes Hx MRSA: No Surgical History: cholecystectomy, Hysterectomy - Vaccination History Hx Tetanus, Diphtheria Vaccination: Yes Hx Influenza Vaccination: Yes Hx Pneumococcal Vaccination: Yes - Social History Hx Tobacco Use: Yes Hx Chewing Tobacco Use: No Hx Alcohol Use: No Hx Substance Use: No Hx Substance Use Treatment: No Hx Depression: No Hx Physical Abuse: No Hx Emotional Abuse: No Hx Suspected Abuse: No - Female History Patient : No Family Medical History - Family History Mother Living Status: Hx Cardiac Disease: Yes Father Living Status: Hx Cardiac Disease: Yes Hx Family;Other: of brain aneurysm Physical Exam - Physical Exam General Appearance: Alert, Comfortable, No apparent distress Eye Exam: bilateral normal Ears, Nose, Throat: hearing grossly normal, normal ENT inspection Neck: non-tender, supple Respiratory: no respiratory distress, no accessory muscle use Cardiovascular/Chest: normal peripheral pulses, no edema, other - regular rate Peripheral Pulses: radial,right: 2+, radial,left: 2+, dorsalis pedis,right: 1+, dorsalis pedis,left: 1+ Gastrointestinal/Abdominal: non tender, soft Rectal Exam: deferred Extremity: normal range of motion, no pedal edema, no calf tenderness, normal capillary refill 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 x- ray shows no definitive fracture or dislocation, though I would not be surprised if there were a hairline fracture of the tuft of the distal phalanx. For this reason we will leave the nail in place. The end of the toe was cleaned with alcohol and dried and then Dermabond was used to fix the nail in place for the next week to 10 days. The patient is going to be placed on low- dose clindamycin for the next 5 days to help prevent any infection. She can expect the toenail to fall off in the next couple of weeks. ER warnings were given for any significant worsening. Departure - Departure Clinical Impression: Subungual hematoma of foot Qualifiers: Encounter type: initial encounter Laterality: right Qualified Code(s): S90.221A - Contusion of right lesser toe(s) with damage to nail, initial encounter Disposition: Discharge to Home or Self Care Condition: Fair Departure Forms: ED Discharge - Pt. Copy, Patient Portal Self Enrollment Diet: diabetic diet Activity: increase activity as tolerated Referrals: Deepak Ramsay MD [Primary Care Provider] - 1-2 Weeks Prescriptions: Clindamycin HCl 300 mg PO Q12HR #10 cap Home Medications: Ambulatory Orders Allopurinol [Zyloprim] 300 mg PO BEDTIME 01/09/15 Gabapentin [Neurontin] 300 mg PO BEDTIME 01/09/15 Insulin Glargine [Lantus Solostar] 20 unit SC BEDTIME 01/09/15 Triamterene & Hydrochlorothiaz [Triamterene/Hydrochloroth 37.5-25 mg] 0.5 tab PO BEDTIME 01/09/15 Warfarin Sodium 2.5 mg PO QPM 01/09/15 Nitroglycerin 0.4 mg Tab [Nitrostat] 1 ea SL PRN PRN 07/14/15 Metoprolol Tartrate [Lopressor] 50 mg PO DAILYBK #30 tab 07/16/15 Amiodarone HCl 2 tablet PO BEDTIME 11/10/17 Clindamycin HCl 300 mg PO Q12HR #10 cap 05/17/18 Additional Instructions: the patient is a 77-year-old female presenting to the emergency room secondary to blunt trauma to the tip of the digit of the right second toe. x- ray shows no definitive fracture or dislocation, though I would not be surprised if there were a hairline fracture of the tuft of the distal phalanx. For this reason we will leave the nail in place. The end of the toe was cleaned with alcohol and dried and then Dermabond was used to fix the nail in place for the next week to 10 days. The patient is going to be placed on low- dose clindamycin for the next 5 days to help prevent any infection. She can expect the toenail to fall off in the next couple of weeks. ER warnings were given for any significant worsening.
[2018-05-17 18:32] VITALS: BP 145/74
== END 2018-05-17 18:32 | disposition home or self-care (01) ==
LOC: ER 16:24
DX: S90.221A Contusion of right lesser toe(s) with damage to nail, initial encounter (principal); S91.204A Unspecified open wound of right lesser toe(s) with damage to nail, initial encounter; J44.9 Chronic obstructive pulmonary disease, unspecified; I10 Essential (primary) hypertension; E11.9 Type 2 diabetes mellitus without complications; Z87.891 Personal history of nicotine dependence; Z79.4 Long term (current) use of insulin; Z79.01 Long term (current) use of anticoagulants; W20.8XXA Other cause of strike by thrown, projected or falling object, initial encounter; Y92.89 Other specified places as the place of occurrence of the external cause

== ENCOUNTER → 2018-06-09 | Outpatient (CLI) | payer MEDICARE, OTHER ==
--- NOTE | 2018-06-09 21:48 | MRI ---
EXAM DESCRIPTION: Thoracic Spine w/o Contrast: Magnetic Resonance Imaging. CLINICAL HISTORY: HERNIATED THORACIC DISC COMPARISON: Thoracic spine radiographs at [facility], 06/06/2018. TECHNIQUE: Multiplanar, multiple standard sequences, non contrast MRI, thoracic spine. FINDINGS: Possibly disc space at T7-8 with desiccation signal and tiny posterior bulge also disc space at T6-7 is minimal but no significant disc desiccation. Anterior Modic type II endplate reactive changes at T9-10 with minimal disc desiccation but no significant disc space loss posteriorly and no bulging. No disc herniation into the canal or foramina. Conus terminates below the T12-L1 level. Normal signal in the cord with no cord compression or cord edema or cord atrophy. No canal or foraminal stenosis at any level. Round circumscribed lesion in the T10 vertebral body dark on T1 and T2 sequences and bright on inversion recovery. Well-circumscribed lesion in the high posterior T11 vertebral body hyperintense T1 and T2 and dark on inversion recovery. Small right pleural effusion. Paravertebral soft tissues are unremarkable. Normal marrow signal in the vertebral bodies and the remaining posterior elements. Vertebral bodies are not compressed at any level. IMPRESSION: 1. Several discs show desiccation minimal disc space loss. Minimal anterior spondylosis. No significant bulging. No herniation into the canal or foramina. No canal or foraminal stenosis. 2. Possibly an infiltrative lesion in the marrow of the T10 vertebral body. Not seen on plain film. This could represent a metastasis, primary bone lesion, or hemangioma. If there is primary malignancy existing, consider follow-up total body radionuclide bone scan. Typical vertebral body hemangioma at T11. Electronically signed by: Deion Mathews MD 06/09/2018 9:46 PM CDT
== END ==
LOC: MRI 13:00
PROVIDERS: ATTEND Family Medicine
DX: M51.24 Other intervertebral disc displacement, thoracic region (principal)

== ENCOUNTER → 2018-06-14 | Outpatient (CLI) | payer MEDICARE, OTHER ==
--- NOTE | 2018-06-16 11:44 | MAM ---
EXAM DESCRIPTION: 3D Screening BILATERAL : Digital Mammography. CLINICAL HISTORY: 77 years Female SCREENING . No complaints. Remote family history of breast cancer. Childbirth. Postmenopausal. Taking HRT 5 or more years ago.. COMPARISON: 2-D digital screening bilateral study 01/10/2013.. No prior reports available. TECHNIQUE: Bilateral CC and MLO projection full-field images, 3-D tomosynthesis digital mammographic technique. CAD not utilized. FINDINGS: The breast parenchymal density pattern is: Scattered areas of fibroglandular density. No skin thickening or nipple retraction. Multiple upper outer quadrant of right breast near the axilla. Bilateral coarse calcifications. Bilateral vascular calcifications. No new focal, stellate mass or density, focal asymmetry , and no suspicious microcalcifications bilaterally. Stable mammograms compared to prior study, taking into account differences in mammographic technique. IMPRESSION: BI-RADS CATEGORY: 2 - BENIGN FINDINGS. FOLLOW UP: Routine digital bilateral screening, one year interval from June 2018. Written communication explaining the IMPRESSION and follow-up, will be mailed to the patient and referring health care provider. According to the [employer], yearly mammograms are recommended starting at age 40 and continuing as long as a woman is in good health. Any breast change noted on a breast self-exam should be reported promptly to the patient's healthcare provider. Breast MRI is recommended for women with an approximately 20-25% or greater lifetime risk of breast cancer, including women with a strong family history of breast or ovarian cancer and women who have been treated for Hodgkin's disease. A negative mammographic report should not delay tissue diagnosis in patients with significant clinical history or physical findings. Extremely dense breast tissue limits the sensitivity of digital mammography. Electronically signed by: Deion Mathews MD 06/16/2018 11:43 AM CDT
== END ==
LOC: MAMMO 10:32
PROVIDERS: ATTEND Family Medicine
DX: Z12.31 Encounter for screening mammogram for malignant neoplasm of breast (principal); R39.15 Urgency of urination

== ENCOUNTER → 2018-06-15 | Outpatient (CLI) | payer MEDICARE, OTHER ==
--- NOTE | 2018-06-16 08:54 | NM ---
EXAM DESCRIPTION: Bone Scan, Whole Body CLINICAL HISTORY: ABNORMAL MRI, T10 LESION COMPARISON: MRI scan thoracic spine 06/09/2018. TECHNIQUE: Patient injected with 26.4 mCi of technetium 99M MDP IV. Delayed gamma camera images from various planes were obtained 3 hr after injection. Also bilateral oblique projections of the thoracic and lumbar spine. FINDINGS: Uniform uptake/activity in the thoracic and lumbar spine. Particularly no abnormal activity/uptake at the T10 level. Minimal scoliosis. Normal uptake in activity in the extremities, long bones, flat bones. Normal soft tissue activity in the pelvis abdomen and chest.. IMPRESSION: Normal radioactive uptake and activity in the thoracic and lumbar spine, particularly at the T10 level where MRI lesion was found. Consider limited CT scan of the lower thoracic and upper lumbar spine without contrast, which could detect an atypical hemangioma at the level of interest. Electronically signed by: Deion Mathews MD 06/16/2018 8:53 AM CDT
== END ==
LOC: NM 09:30
PROVIDERS: ATTEND Family Medicine
DX: R93.8 Abnormal findings on diagnostic imaging of other specified body structures (principal)

== ENCOUNTER → 2018-07-14 | Outpatient (CLI) | payer MEDICARE, OTHER | LOC: GMAM 10:26 | PROVIDERS: ATTEND Family Medicine | DX: E53.8 Deficiency of other specified B group vitamins (principal); E04.8 Other specified nontoxic goiter ==

== ENCOUNTER 2018-10-25 05:12 | Emergency (ER) | payer MEDICARE, OTHER ==
[2018-10-25] MEDS ORDERED: MORPHINE SULFATE INJ 10 MG/ML VIAL IV ONE ×2 (06:24→07:11)
[2018-10-25] MEDS ORDERED: ONDANSETRON INJ 4 MG/2 ML VIAL IV ONE (06:27)
--- NOTE | 2018-10-25 06:36 | ED.PDOC ---
History of Present Illness - General Source: patient Exam Limitations: no limitations - History of Present Illness Initial Comments: PT C/O L FLANK PAIN. SHARP, CONSTANT, RADIATING TO LLQ. HAS HAD HEMATURIA FOR PAST 3 DAYS. WENT TO SEE HER PCP YESTERDAY WHO ORDERED CT ABDOMEN AND PELVIS. STARTED WITH L FLANK AND LLQ PAIN THIS AM. CAME IN FOR EVALUATION Timing/Duration: other - 3-4 DAYS Severity: moderate Improving Factors: nothing Worsening Factors: nothing Associated Symptoms: other - HEMATURIA <Benedict Rios - Last Filed: 10/25/18 06:33> <Rito Pandya - Last Filed: 10/25/18 07:54> - General Chief Complaint: Problem Stated Complaint: I got kidney stones Time Seen by Provider: 10/25/18 06:17 - History of Present Illness Allergies/Adverse Reactions: Allergies Aspirin Allergy (Verified 05/17/18 17:16) Azithromycin [From Z-Newton] Allergy (Verified 05/17/18 17:16) Doxycycline Allergy (Verified 05/17/18 17:16) Influenza Vaccines Allergy (Verified 05/17/18 17:16) Macrolides Allergy (Verified 05/17/18 17:16) Penicillins Allergy (Verified 05/17/18 17:16) Risedronate [From Actonel] Allergy (Verified 05/17/18 17:16) Salicylates Allergy (Verified 05/17/18 17:16) Sulfa Drugs Allergy (Verified 05/17/18 17:16) Diphenhydramine [From Benadryl] Adverse Reaction (Verified 05/17/18 17:16) Lisinopril Adverse Reaction (Verified 09/11/14 17:41) Metformin and Related Adverse Reaction (Verified 09/11/14 17:41) Metoclopramide [From Reglan] Adverse Reaction (Verified 09/11/14 17:41) Raloxifene [From Evista] Adverse Reaction (Verified 09/11/14 17:41) Home Medications: Ambulatory Orders Allopurinol [Zyloprim] 300 mg PO BEDTIME 01/09/15 Gabapentin [Neurontin] 300 mg PO BEDTIME 01/09/15 Insulin Glargine [Lantus Solostar] 20 unit SC BEDTIME 01/09/15 Triamterene & Hydrochlorothiaz [Triamterene/Hydrochloroth 37.5-25 mg] 0.5 tab PO BEDTIME 01/09/15 Warfarin Sodium 2.5 mg PO QPM 01/09/15 Nitroglycerin 0.4 mg Tab [Nitrostat] 1 ea SL PRN PRN 07/14/15 Metoprolol Tartrate [Lopressor] 50 mg PO DAILYBK #30 tab 07/16/15 Amiodarone HCl 2 tablet PO BEDTIME 11/10/17 Clindamycin HCl 300 mg PO Q12HR #10 cap 05/17/18 Ketorolac Tromethamine 10 mg PO TID #15 tab 10/25/18 Nitrofurantoin Monohydrate Mac [Macrobid] 100 mg PO BID #20 capsule 10/25/18 Tramadol HCl 50 mg PO Q6HRS #20 tab 10/25/18 Review of Systems - Review of Systems Constitutional: Denies: chills, fever EENTM: States: no symptoms reported Respiratory: Denies: cough, short of breath Cardiology: Denies: chest pain, palpitations Gastrointestinal/Abdominal: States: abdominal pain, nausea. Denies: vomiting Genitourinary: States: hematuria. Denies: dysuria, frequency Musculoskeletal: States: back pain Skin: States: no symptoms reported Neurological: States: no symptoms reported Endocrine: States: no symptoms reported Hematologic/Lymphatic: States: no symptoms reported <Benedict Rios - Last Filed: 10/25/18 06:33> Past Medical History (General) - Patient Medical History Hx Seizures: No Hx Stroke: No Hx Dementia: No Hx Asthma: No Hx of COPD: Yes Hx Cardiac Disorders: Yes - hx of A-fib Hx Congestive Heart Failure: No Hx Pacemaker: No Hx Hypertension: Yes Hx Thyroid Disease: No Hx Diabetes: Yes Hx Gastroesophageal Reflux: No Hx Renal Disease: No Hx of HIV: No Hx MRSA: No Surgical History: appendectomy, cholecystectomy, Hysterectomy, other - Vaccination History Hx Tetanus, Diphtheria Vaccination: Yes - greater than 5 yr Hx Influenza Vaccination: Yes Hx Pneumococcal Vaccination: Yes Immunizations Up to Date: No - Social History Hx Tobacco Use: Yes Hx Chewing Tobacco Use: No Hx Alcohol Use: No Hx Substance Use: No Hx Substance Use Treatment: No Hx Depression: No Feels Threatened In Home Enviroment: No Feels Threatened In a Relationship: No Hx Physical Abuse: No Hx Emotional Abuse: No Hx Suspected Abuse: No - Female History Patient is a Female of Child Bearing Age (10 -59 yrs old): No Patient : No <Benedict Rios - Last Filed: 10/25/18 06:33> Family Medical History - Family History Mother Living Status: Hx Cardiac Disease: Yes Father Living Status: Hx Cardiac Disease: Yes Hx Family;Other: of brain aneurysm <Benedict Rios - Last Filed: 10/25/18 06:33> Physical Exam - Physical Exam General Appearance: Alert, No apparent distress Eye Exam: bilateral normal Ears, Nose, Throat: hearing grossly normal, normal ENT inspection Neck: non-tender, full range of motion, supple Respiratory: lungs clear, normal breath sounds Cardiovascular/Chest: regular rate, rhythm, systolic murmur - 2/6 Gastrointestinal/Abdominal: soft, no organomegaly - MILD LLQ TTP Back Exam: normal inspection, no vertebral tenderness, CVA tenderness (L) - MOD Extremity: normal range of motion, normal inspection Neurologic: alert, normal mood/affect Skin Exam: normal color, warm/dry Lymphatic: no adenopathy <Benedict Rios - Last Filed: 10/25/18 06:33> Progress - Progress Progress: 10/25/18 07:12 still hurting on the left flanlk-will give [address] REPORT PENDING. - Results/Orders Results/Orders: Laboratory Results WBC 5.1 K/mm3 (4.8-10.8) 10/25/18 06:33 RBC 4.18 M/mm3 (4.20-5.40) L 10/25/18 06:33 Hgb 12.4 gm/dL (12.0-16.0) 10/25/18 06:33 Hct 38.6 % (36.0-47.0) 10/25/18 06:33 MCV 92.5 fl (81.0-99.0) 10/25/18 06:33 MCH 29.6 pg (27.0-31.0) 10/25/18 06:33 MCHC 32.1 g/dL (33.0-37.0) L 10/25/18 06:33 RDW 17.2 % (11.5-14.5) H 10/25/18 06:33 Plt Count 123 K/mm3 (130-400) L 12/12/18 06:33 MPV 9.6 fl (7.40-10.4) 10/25/18 06:33 Absolute Neuts (auto) 3.60 K/uL (1.8-6.8) 10/25/18 06:33 Absolute Lymphs (auto) 1.10 K/uL (1.0-3.4) 10/25/18 06:33 Absolute Monos (auto) 0.30 K/uL (0.2-0.8) 10/25/18 06:33 Absolute Eos (auto) 0.10 K/uL (0.0-0.4) 10/25/18 06:33 Absolute Basos (auto) 0.00 K/uL (0.0-0.1) 10/25/18 06:33 Neutrophils % 70.8 % (42.0-78.0) 10/25/18 06:33 Lymphocytes % 20.7 % (20.0-50.0) 10/25/18 06:33 Monocytes % 6.5 % (2.0-9.0) 10/25/18 06:33 Eosinophils % 1.4 % (1.0-5.0) 10/25/18 06:33 Basophils % 0.6 % (0.0-2.0) 10/25/18 06:33 Sodium 140 mmol/L (135-145) 10/25/18 06:33 Potassium 3.6 mmol/L (3.6-5.0) 10/25/18 06:33 Chloride 104 mmol/L (101-111) 10/25/18 06:33 Carbon Dioxide 27 mmol/L (21-31) 10/25/18 06:33 Anion Gap 12.6 (12-18) 10/25/18 06:33 BUN 21 mg/dL (7-18) H 10/25/18 06:33 Creatinine 1.24 mg/dL (0.6-1.3) 10/25/18 06:33 BUN/Creatinine Ratio 16.9 (10-20) 10/25/18 06:33 Random Glucose 117 mg/dL (70-105) H 10/25/18 06:33 Serum Osmolality 283.4 mOsm/L (275-295) 10/25/18 06:33 Calcium 9.2 mg/dL (8.4-10.2) 10/25/18 06:33 Urine Color Yellow (Yellow) 10/25/18 05:45 Urine Appearance Cloudy (Clear) 10/25/18 05:45 Urine pH 5.5 (4.5-7.8) 10/25/18 05:45 Ur Specific [place] 1.020 (1.005-1.030) 10/25/18 05:45 Urine Protein Negative mg/dL 10/25/18 05:45 Urine Glucose (UA) Negative mg/dL (Negative) 10/25/18 05:45 Urine Ketones Negative mg/dL (NEGATIVE) 10/25/18 05:45 Urine Blood Large (Negative) H 10/25/18 05:45 Urine Nitrite Negative 10/25/18 05:45 Urine Bilirubin Negative (NEGATIVE) 10/25/18 05:45 Urine Urobilinogen 0.2 mg/dL (0.2-1.0) 10/25/18 05:45 Ur Leukocyte Esterase Trace (Negative) H 10/25/18 05:45 Urine RBC Tntc /hpf H 10/25/18 05:45 Urine WBC 5-10 /hpf H 10/25/18 05:45 Ur Epithelial Cells 3-5 /hpf 10/25/18 05:45 Urine Bacteria Rare 10/25/18 05:45 Urine Yeast Rare 10/25/18 05:[address] ABDOMEN AND PELVIS REVEALS A 5 MM OBSTRUCTING STONE AT THE LEVEL OF UV JUNCTION. I HAVE DISCUSSED THE CSE WITH THE PATIENT AND THE . THE PATIENT WOULD LIKE A TRY OUTPATIENT TREATMENT. SHE SEES DR. HUANG STOCK AND HAS AN APPOINTMENT IN EARLY NOVEMBER. <Rito Pandya - Last Filed: 10/25/18 07:54> Departure <Benedict Rios - Last Filed: 10/25/18 06:33> - Departure Time of Disposition: 07:50 Diet: resume usual diet Activity: increase activity as tolerated <Rito Pandya - Last Filed: 10/25/18 07:54> - Departure Clinical Impression: Renal colic on left side Disposition: Discharge to Home or Self Care Condition: Good Departure Forms: ED Discharge - Pt. Copy, Patient Portal Self Enrollment Instructions: DI for Kidney Stones Referrals: Deepak Ramsay MD [Primary Care Provider] - 1-2 Weeks Prescriptions: Tramadol HCl 50 mg PO Q6HRS #20 tab Ketorolac Tromethamine 10 mg PO TID #15 tab Nitrofurantoin Monohydrate Mac [Macrobid] 100 mg PO BID #20 capsule Home Medications: Ambulatory Orders Allopurinol [Zyloprim] 300 mg PO BEDTIME 01/09/15 Gabapentin [Neurontin] 300 mg PO BEDTIME 01/09/15 Insulin Glargine [Lantus Solostar] 20 unit SC BEDTIME 01/09/15 Triamterene & Hydrochlorothiaz [Triamterene/Hydrochloroth 37.5-25 mg] 0.5 tab PO BEDTIME 01/09/15 Warfarin Sodium 2.5 mg PO QPM 01/09/15 Nitroglycerin 0.4 mg Tab [Nitrostat] 1 ea SL PRN PRN 07/14/15 Metoprolol Tartrate [Lopressor] 50 mg PO DAILYBK #30 tab 07/16/15 Amiodarone HCl 2 tablet PO BEDTIME 11/10/17 Clindamycin HCl 300 mg PO Q12HR #10 cap 05/17/18 Ketorolac Tromethamine 10 mg PO TID #15 tab 10/25/18 Nitrofurantoin Monohydrate Mac [Macrobid] 100 mg PO BID #20 capsule 10/25/18 Tramadol HCl 50 mg PO Q6HRS #20 tab 10/25/18
[2018-10-25 07:02] VITALS: TEMP 98.7
--- NOTE | 2018-10-25 07:25 | CT ---
EXAM DESCRIPTION: Abdoment/Pelvis w/o Contrast CLINICAL HISTORY: 77 years Female STONE STUDY, L FLANK PAIN COMPARISON: None TECHNIQUE: Contiguous axial images were obtained through the abdomen and pelvis without the administration of intravenous contrast or oral contrast. Coronal and sagittal reconstructions are also obtained and reviewed. This exam was performed according to our departmental dose-optimization program, which includes automated exposure control, adjustment of the mA and/or kV according to patient size and/or use of iterative reconstruction technique. FINDINGS: LUNG BASES: HEART: There is no cardiomegaly. There is mitral valvular calcification. No significant pericardial effusion. LUNGS: There is prominence of the interlobular septa which may reflect mild edema and was not previously demonstrated. No gross consolidation or mass. PLEURAL SPACES: There is no evidence of pleural fluid or pneumothorax . ABDOMEN: LIVER: Normal in size with a slightly nodular configuration and mildly prominent left lobe concerning for cirrhosis.The liver parenchyma appears hyperdense, measuring 82 H.U. Small hypodensities in both lobes of the liver again noted and stable when compared to the previous study of 01/03/2015, most likely small cysts or hemangiomata with the largest measuring 1.4 cm x 1 cm There is no evidence of biliary ductal dilatation. GALLBLADDER AND BILE DUCTS: The gallbladder is absent status post cholecystectomy with surgical clips in the gallbladder fossa. There is no biliary ductal dilatation. PANCREAS: Unremarkable. No ductal dilatation, inflammatory changes or mass. SPLEEN: The spleen is borderline enlarged, measuring 12.5 cm longitudinally by 12.1 cm. Accessory splenules are present. ADRENALS: Unremarkable. No mass or calcification. KIDNEYS AND URETERS: There is mild left perinephric, peripelvic and periureteric reticulation as well as mild left pelvocaliectasis and ureterectasis secondary to a 5 mm x 4 mm by 4 mm obstructive calculus located in the left UVJ. There is no evidence of solid renal mass. There are no nonobstructive intrarenal calculi on the right. There is no evidence of right hydronephrosis. DISTAL ESOPHAGUS, STOMACH AND BOWEL: The distal esophagus is unremarkable. The stomach is unremarkable. The small bowel is unremarkable. The colon is unremarkable, status post previous partial distal colonic resection with reanastomosis.. The rectum is unremarkable. No evidence of intestinal obstruction or inflammatory changes. PELVIS: APPENDIX: Present and appears normal with no findings to suggest acute appendicitis. BLADDER: The urinary bladder appears thick walled up to 7 mm. No evidence of cystolithiasis or discrete bladder mass. REPRODUCTIVE: The uterus and adnexa are unremarkable. ABDOMEN and PELVIS: INTRAPERITONEAL SPACE: Unremarkable. No free air or free fluid. No significant focal fluid collection. BONES AND JOINTS: There are no discernible acute fractures or areas of osseous destruction or blastic change. SOFT TISSUES: There is laxity of the aponeurosis of the musculi recti abdominis with focal ventral bulging mesenteric fat. VASCULATURE: There is diffuse atherosclerosis in the systemic arterial vasculature without evidence of an aneurysm. LYMPH NODES: Unremarkable. There is no evidence of mesenteric, retroperitoneal, pelvic or inguinal adenopathy. IMPRESSION: 5 mm x 4 mm by 4 mm obstructive calculus located in the left UVJ. Borderline splenomegaly could be on the basis of mild portal hypertension in the setting of cirrhosis. Mildly nodular contour of the liver with prominent left lobe is concerning for cirrhosis. Hyperdense liver. Differential considerations include iron deposition disorders such as hemosiderosis or hemochromatosis, copper deposition disorder, ie Dariel's disease, glycogen storage diseases, medications such as amiodarone or gold and prior thorotrast administration. The appearance of the bladder wall thickening, defined as greater than 3 mm in a distended bladder and greater than 5 mm when nondistended, may be caused or exaggerated by incomplete distention. Other differential considerations for bladder wall thickening include neurogenic bladder, cystitis which can be infectious or secondary to extrinsic injury such as radiation or chemotherapy versus detrusor muscle hypertrophy as can occur with bladder outlet obstruction or autonomic dysfunction in the appropriate clinical setting. Recommend correlation with urinalysis. . There is no evidence of cystolithiasis or bladder mass. Remainder of findings as described above. Electronically signed by: Michell Monteiro MD 10/25/2018 7:23 AM [facility]
[2018-10-25 08:11] VITALS: BP 140/65; O2SAT 92
== END 2018-10-25 08:06 | disposition home or self-care (01) ==
LOC: ER 05:12
DX: N20.0 Calculus of kidney (principal); J44.9 Chronic obstructive pulmonary disease, unspecified; I48.91 Unspecified atrial fibrillation; E11.9 Type 2 diabetes mellitus without complications; I10 Essential (primary) hypertension; Z87.891 Personal history of nicotine dependence; Z90.49 Acquired absence of other specified parts of digestive tract; Z79.01 Long term (current) use of anticoagulants; Z79.899 Other long term (current) drug therapy; Z88.8 Allergy status to other drugs, medicaments and biological substances; Z88.2 Allergy status to sulfonamides; Z88.0 Allergy status to penicillin; Z88.6 Allergy status to analgesic agent
CPT/HCPCS: 74176; 80048; 81001; 85025; J2270; J2405

== ENCOUNTER → 2018-11-22 | Outpatient (CLI) | payer MEDICARE, OTHER | LOC: GMAM 15:46 | PROVIDERS: ATTEND Family Medicine | DX: E53.8 Deficiency of other specified B group vitamins (principal); E89.0 Postprocedural hypothyroidism; E55.9 Vitamin D deficiency, unspecified; M10.9 Gout, unspecified ==

== ENCOUNTER 2019-02-05 15:19 | Inpatient (IN) | payer MEDICARE, OTHER ==
--- NOTE | 2019-02-05 16:44 | HP ---
SUPERVISING PHYSICIAN: Parveen Malloy MD CHIEF COMPLAINT: Nausea, vomiting, diarrhea with administer pain and cough. HISTORY OF PRESENT ILLNESS: Ms. Ramsay is a 78 year-old female who presented to Dr. Ramsay's office this morning for evaluation of some nausea, vomiting, diarrhea, that had developed over the last 3 days. She had not been able to eat or hold anything down over the weekend and has now developed a cough. She noted she had lesley running a fever up to 101 at home. She was complaining of some abdominal pain, more so on the left. She does have a history of diverticulosis and having a previous colon resection in 2010. Laboratory studies showed she did have an elevated bilirubin at 1.7, CBC was pending at time of admission. Lipase was normal. Abdominal series in the Emergency Room in the clinic showed possible fluid levels concerning for a possible ileus. Dr. Ramsay has requested the patient be admitted directly to the hospital for further evaluation of the abdominal pain as well as concerns for developing pneumonia versus congestive heart failure exacerbation. She is admitted in stable condition. PAST MEDICAL HISTORY: 1. Atrial fibrillation on chronic Coumadin therapy. 2. Congestive heart failure with last echocardiogram in 2007 showing a 55% ejection fraction and a diastolic dysfunction. 3. Coronary artery disease. 4. Hyperlipidemia. 5. Hypertension. 6. Chronic obstructive pulmonary disease. 7. Sleep apnea but no utilizing CPAP. 8. History of diverticulosis with diverticulitis requiring previous colon resection in 2010. 9. Type 2 diabetes mellitus. 10. Gout. PAST SURGICAL HISTORY: 1. Cholecystectomy. 2. Colon resection [place] [address] Calvin with a sigmoidectomy and a primary anastomosis for complications due to diverticulitis. 3. Thyroidectomy in 2017 with thyroid nodules removed by Dr. Gotti on the right. 4. Bilateral cataract removal. 5. Hysterectomy at age 22. 6. Oophorectomy, unilateral 07-04-2000. 7. Oophorectomy at age 39. 8. Appendectomy. CURRENT MEDICATIONS: 1. Allopurinol 300 mg at bedtime. 2. Amiodarone 200 mg at bedtime. 3. Gabapentin 300 mg at bedtime. 4. Lantus 20 units at bedtime. 5. Nitrostat as needed, 0.4 mg. 6. Lopressor 50 mg at bedtime. 7. Coumadin 2.5 mg at bedtime. 8. Triamterene Hydrochlorothiazide 37.5/25, half tablet at bedtime. ALLERGIES: Aspirin, Macrolides, Doxycycline, influenza vaccine, penicillins, Risedronate, sulfa drugs, Benadryl, Fei inhibitors, Metformin, Reglan, Evista. FAMILY HISTORY: Father at age 72 from brain aneurysm, mother at age 59 due to heart failure. One sister is due to heart failure and she has one daughter who has back problems. SOCIAL HISTORY: The patient lives in [place]. She is , has one child. She is a homemaker. She is a former but quit 20 years previously. She does not and never has drank alcohol or abused illicit drugs. REVIEW OF SYSTEMS: CONSTITUTIONAL: Positive for general fatigue, fevers, chills. No noted unintentional weight loss. HEENT: Negative for nasal congestion, ear ache, sore throat, headaches, vision changes. RESPIRATORY: Positive for cough, negative for increase in shortness of breath or wheezing. CARDIAC: Negative for chest pain, palpitations, syncopal episodes, tachycardia. She does have a history of atrial fibrillation on chronic Coumadin therapy. GASTROINTESTINAL: As noted in history of present illness. Positive for nausea, vomiting, diarrhea with some abdominal pains on the left side. GENITOURINARY: Positive for polyuria, dysuria. Negative for hematuria. NEUROLOGICAL: Negative for headaches, seizures, ataxia or focal motor deficits. HEMATOLOGY: Positive for easy bruising secondary to Coumadin, denies any unexplained bleeding. No reported transfusion reactions. PHYSICAL EXAMINATION: VITAL SIGNS: Temperature 100.8 on admission with pulse of 80, blood pressure 138/78, respirations 20, saturation 94% on room air at rest. Admission weight 84.3 kg. GENERAL: The patient does appear ill and tired but is in no acute distress. She is alert, looks a little bit dehydrated. HEENT: Tympanic membranes are clear bilaterally. Oropharynx pink, moist without any lesions. NECK: Supple, non-tender, full range of motion, no jugular venous distention. CHEST: Lung sounds were diminished toward the bases with some rhonchi heard on the left posterior aspect compared to the right. No obvious wheezing or rales. CARDIOVASCULAR: Regular rate and rhythm without appreciable murmurs, rubs, or gallops. ABDOMEN: Soft with some tenderness to palpation to the left upper and lower quadrant and suprapubic areas. No rebound tenderness. No point tenderness. No peritoneal signs. Bowel sounds were hyperactive. EXTREMITIES: Without any cyanosis, clubbing, or edema. NEUROLOGIC: She is alert and oriented x 3. Cranial nerves II through XII are grossly intact. Facial features are symmetrical, extraocular movements within normal limits. LABORATORY: CBC pending. Urinalysis showed a small amount of bilirubin, trace leukoesterase. WBC showed 5 to 0 with 1 to 3 RBCs, 1+ bacteria, 2+ amorphous material, 3 to 5 epithelials, 1 to 3 transitional epithelial cells. Coagulation studies showed a PT of 17.8, INR 1.79, PCP of 36.3. Chemistries showed normal electrolytes, potassium 3.8, magnesium 1.8, calcium 8.6, BUN 18, creatinine 1.21, lactic acid 1.3, liver functions showed an elevated total bilirubin of 1.7 with a direct bilirubin of 0.5, indirect of 1.2. AST, ALT and alkaline phosphatase within normal limits. Lipase normal at 32. MICROBIOLOGY C-diff pending, stool culture pending, sputum culture pending. Blood cultures pending. RADIOLOGY: Chest CT without contrast showed patchy opacifications of the bilateral upper lobes, greater on the left, raising concerns for multifocal pneumonia with some mixed solid ground glass opacifications within the superior segment of the left lower lobe, may be secondary to infectious or inflammatory process, however, a pulmonary nodule could not be excluded measuring up to [address] of the abdomen and pelvis without contrast noted a lobular and small appearance of the liver with borderline splenomegaly raising concerns for cirrhosis, no free air, no free abdominal fluid collections. Appendix was within normal limits. Bowel within normal limits without any abnormal bowel wall, thickness or bowel dilation. Liver, pancreas, spleen, bilateral kidneys and bilateral adrenal glands otherwise are within normal limits. Surgical clip at the level of the gallbladder, cholecystectomy, no other specific acute intraabdominal findings suggestive of patient's abdominal pain. Please see that report for full details. ASSESSMENT: 1. Community acquired pneumonia, multifocal, with concerns for possible atypical pneumonia or streptococcus pneumoniae. 2. Acute exacerbation of chronic obstructive pulmonary disease secondary to #1. 3. Acute abdominal pain with nausea, vomiting, diarrhea, with no acute findings on CT with concerns for possible early diverticulitis versus enteritis versus ileus. No evidence of obstruction. 4. Chronic atrial fibrillation on chronic Coumadin therapy. 5. Congestive heart failure with a diastolic dysfunction with last echocardiogram showing an ejection fraction of 55% with no signs of exacerbation. 6. Type 2 diabetes mellitus on insulin therapy. 7. History of gout. 8. History of hypertension with ejection fraction of 55% on last echocardiogram. 9. Elevated bilirubin, uncertain etiology, needing further workup. PLAN: The patient is going to be directly admitted for ongoing treatment of left-sided community acquired pneumonia and concerns for early enteritis versus early diverticulitis. Dr. Calvin is consulted and will see the patient in the morning. Until then, we will make the patient n.p.o. for bowel rest. I have started her on Levaquin for antibiotic coverage as she has multiple allergies listed and she is on amiodarone and given that fact will hold off on any Flagyl as both the Levaquin and Flagyl can result in arrhythmias with combination of amiodarone. She will be on fluids with D5 LR at 80 an hour. Will also provide her with antiemetics and pain management as needed. She will be on DVT prophylaxis with Coumadin continued. She is on sliding scale per insulin protocol. Once we have updated and verified her medications, we will resume those as appropriate. Will plan to repeat an abdominal x-ray in the morning as well as a chest x-ray and laboratory studies. Will anticipate her length of stay to be 2 to 3 days and until she can transition back to outpatient management, will continue to monitor and treat as needed. #[id number] MTDD
[2019-02-05] MEDS ORDERED: SODIUM CHLORIDE 0.9% (FLUSH) 10 ML SYG IV PRN (17:04)
[2019-02-05] MEDS ORDERED: DEXTROSE 50% 25 GM/50 ML SYG IV PRN (17:11)
[2019-02-05] MEDS ORDERED: GLUCAGON INJ 1 MG VIAL SUBCU PRN (17:11)
[2019-02-05] MEDS ORDERED: LEVALBUTEROL NEBS 1.25 MG/3 ML VIAL NEB PRN (18:26)
[2019-02-05] MEDS: [UNRECOGNIZED DRUG - OTHER] IVS PRN (18:56)
[2019-02-05] MEDS: DEXTROSE 5% IVS PRN (18:56)
--- NOTE | 2019-02-05 19:18 | CT ---
EXAM: Chest w/o Contrast (accession [id number]), Abdoment/Pelvis w/o Contrast (accession [id number]) CLINICAL INDICATION: 78-year-old female with increased shortness of breath and abdominal pain. COMPARISON: 10/25/2018. EXAMINATION: CT of the chest, abdomen and pelvis was performed without intravenous or oral contrast. Multiplanar reformatted images were provided. This exam was performed according to our departmental dose optimization program which includes use of automated exposure control, adjustment of the mA and/or kV according to patient size and/or use of iterative reconstruction technique. FINDINGS: Evaluation of solid organ pathology is limited secondary to lack of intravenous contrast. Within these limitations, the following observations are made. Chest: Evaluation through the chest reveals patchy opacification of the bilateral upper lobes, greater on the LEFT raising the concern for multifocal pneumonia. Mixed solid/groundglass opacification within the superior segment of the LEFT lower lobe may be secondary to infectious or inflammatory process, however pulmonary nodule cannot be excluded measuring up to 7 mm, (series 2, image 27). No pleural effusion or pneumothorax. Heart size is within normal limits. No pericardial effusion. Abdomen and pelvis: Circumscribed hypoattenuating lesions are identified within the liver some of which are subcentimeter in size suggestive of simple hepatic cysts similar in appearance to the previous examination. The largest lesion measures 19 mm in maximal dimension and approximately 10 Hounsfield units suggestive of a simple cyst. Slightly lobulated morphology of the liver raises the concern for cirrhosis in the correct clinical setting. Stable hypodensity of the liver again noted, a nonspecific finding. Surgical clips at the level of the gallbladder fossa status post cholecystectomy. Borderline splenomegaly measuring 12 cm stable in comparison to the previous examination. The liver, pancreas, spleen, bilateral kidneys and bilateral adrenal glands are otherwise within normal limits. The vessels are normal in caliber. No abdominopelvic lymph nodes are noted to be pathologically enlarged by CT measurement criteria. The bowel is within normal limits without abnormal bowel wall thickness or bowel dilation. No free air. No free abdominopelvic fluid collections. The appendix is within normal limits. The osseous structures reveal diffuse demineralization and degenerative change. Moderate to severe lumbar spinal canal narrowing present at the L4-5 level secondary to severe broad-based disk bulge, ligamentum flavum and facet hypertrophy. Ventral rectus sheath diastases again noted with a broad-based mesenteric fat-containing hernia. IMPRESSION: 1. No specific acute intra-abdominal findings are noted to suggest etiology of the patient's abdominal pain. 2. Evaluation through the chest reveals patchy opacification of the bilateral upper lobes, greater on the LEFT raising the concern for multifocal pneumonia. Please correlate with patient clinical findings and consider follow-up for resolution. 3. Mixed solid/groundglass opacification within the superior segment of the LEFT lower lobe may be secondary to infectious or inflammatory process, however pulmonary nodule cannot be excluded measuring up to 7 mm. 2017 Fleischner Society Recommendations for Subsolid Lung Nodule Follow-Up based on size (average of long- and short-axis diameters). Use most suspicious nodule for followup. Single <6 mm Ground glass: No routine follow-up <6 mm Part solid: No routine follow-up > or = 6 mm Ground glass: CT at 6-12 months to confirm persistence, then CT every 2 years until 5 years > or = 6 mm Part solid: CT at 3-6 months to confirm persistence, If unchanged and solid component remains<6mm, annual CT should be performed for 5 years. Multiple < 6mm: CT at 3-6 months. If stable consider CT at 2 and 4 years. > or = 6mm: CT at 3-6 months. Subsequent management based on the most suspicious nodule(s). 4. Lobular and small appearance of the liver with borderline splenomegaly raising the concern for cirrhosis in the correct clinical setting. 5. Additional chronic appearing changes as detailed above. Electronically signed by: Kiley Beal MD 02/05/2019 7:15 PM CDT
[2019-02-05] MEDS ORDERED: levoFLOXacin 750MG IV 750 MG in PREMIX BAG 1 BAG IVPB SCH (20:00)
[2019-02-05] MEDS ORDERED: METOPROLOL TARTRATE 50 MG TAB ONE (20:04)
[2019-02-05] MEDS: LEVALBUTEROL NEBS 1.25 MG/3 ML VIAL NEB SCH (20:39)
[2019-02-05] MEDS ORDERED: NON-FORMULARY MEDICATION 1 EA MIS (Triamterene & Hydrochlorothiaz [Triamterene/Hydrochloro PO SCH (21:00)
[2019-02-05] MEDS ORDERED: WARFARIN SODIUM 2.5 MG TAB PO SCH (21:00)
[2019-02-05] MEDS ORDERED: INSULIN LISPRO 100 UNITS/ML PEN SUBCU SCH (21:00)
[2019-02-05] MEDS: AMIODARONE HCL 200 MG TAB PO SCH (21:17)
[2019-02-05] MEDS: ALLOPURINOL 300 MG TAB PO SCH (21:17)
[2019-02-05] MEDS: IV SET AND CAP CHANGE INJ INJ SCH (21:17)
[2019-02-05] MEDS: METOPROLOL TARTRATE 25 MG TAB PO SCH (21:18)
[2019-02-05] MEDS: GABAPENTIN 300 MG CAP PO SCH (21:18)
[2019-02-06] MEDS: INSULIN LISPRO 100 UNITS/ML PEN SUBCU SCH ×4 (00:41→20:57)
[2019-02-06] MEDS ORDERED: MORPHINE SULFATE INJ 10 MG/ML VIAL IV ONE (00:56)
[2019-02-06] MEDS ORDERED: KETOROLAC TROMETHAMINE INJ 30 MG/ML VIAL IV ONE (00:57)
[2019-02-06] MEDS: ACETAMINOPHEN 325 MG TAB PO PRN ×2 (01:13→20:55)
--- NOTE | 2019-02-06 07:29 | RAD ---
EXAM: Two view chest. INDICATION: Pneumonia. COMPARISON: Chest x-ray: 12/12/2017. FINDINGS: There are left upper lobe and right lower lobe interstitial opacities. The heart is mildly enlarged. There is no pneumothorax or pleural effusion. IMPRESSION: Multifocal pneumonia Electronically signed by: Amari Garcia MD 02/06/2019 7:25 AM CDT Workstation: [id number]
[2019-02-06] MEDS: LEVALBUTEROL NEBS 1.25 MG/3 ML VIAL NEB SCH ×4 (07:43→20:36)
[2019-02-06] MEDS: [UNRECOGNIZED DRUG - OTHER] IVS PRN ×2 (08:41→20:47)
[2019-02-06] MEDS: DEXTROSE 5% IVS PRN ×2 (08:41→20:47)
--- NOTE | 2019-02-06 09:48 | CONS ---
DATE OF CONSULTATION: 02/06/19 HISTORY OF PRESENT ILLNESS: The patient is a 78-year-old female who is known to me in the past for a colectomy. She was admitted yesterday with productive cough, nausea, vomiting and a history of diarrhea with no specific history of fever or chills. She did complain of abdominal pain yesterday, but does not today. PAST MEDICAL HISTORY: 1. Chronic obstructive pulmonary disease. 2. Atrial fibrillation. 3. Hypertension. PAST SURGICAL HISTORY: 1. Appendectomy. 2. Cholecystectomy. 3. Hysterectomy. 4. Colectomy. MEDICATIONS: 1. Allopurinol. 2. Gabapentin. 3. Insulin. 4. Triamterene. 5. Hydrochlorothiazide. 6. Warfarin. 7. Nitroglycerin. 8. Metoprolol. 9. Amiodarone. 10. Ketoralac. 11. Nitrofurantoin. 12. Tramadol. ALLERGIES: MULTIPLE ALLERGIES INCLUDING ASPIRIN, AZITHROMYCIN, DOXYCYCLINE, INFLUENZA VACCINE, MACROLIDES, PENICILLINS, SALICYLATES, SULFA DRUGS, DIPHENHYDRAMINE, LISINOPRIL, METFORMIN, METOCLOPRAMIDE, RALOXIFENE, RISEDRONATE. FAMILY HISTORY: Noncontributory. REVIEW OF SYSTEMS: There has been no weight loss, change in her bowel habits, blood per rectum and no vomiting of blood. She does complain of some chest pain on the left side, but no real shortness of breath. PHYSICAL EXAMINATION: VITAL SIGNS: The patient is currently afebrile, normotensive. Pulse in the 50s. HEENT: Sclerae nonicteric. Mucous membranes moist. NECK: Without adenopathy. BACK: Without CVA tenderness. CHEST: Equal breath sounds bilaterally. HEART: Regular rate and rhythm. ABDOMEN: Soft, distended, minimally tender. Bowel sounds are positive. PELVIC/RECTAL: Deferred. EXTREMITIES: Without cyanosis, clubbing or edema. LABORATORY: Potassium this morning 3.6, creatinine 1.28. Blood sugars under 125. Total bilirubin 71., normal AST, ALT and alkaline phosphatase. CK, CK-MB all within normal limits. White blood cell count 6.6, hemoglobin 9.2, platelet count 87,000, normal differential with 75 neutrophils. Urine shows specific gravity 1.020, small bilirubin, trace leukocyte esterase, 5 to 10 white cells, 1+ bacteria. Chest x-ray this morning reveals bilateral opacities consistent with a pneumonia identified on CT scan. Abdominal CT scan was unremarkable other than some pathologically large lymph nodes with no other inflammatory process or mass noted in the abdomen. ASSESSMENT: 1. Pneumonia, unknown etiology. RECOMMENDATION: I would recommend starting a clear liquid diet, medications and follow the patient symptomatically. [facility][id number] [facility]
[2019-02-06] MEDS: WARFARIN SODIUM 2.5 MG TAB PO SCH (12:02)
[2019-02-06] MEDS ORDERED: guaiFENesin ER TAB 600 MG TAB PO ONE (12:16)
--- NOTE | 2019-02-06 13:24 | PN ---
SUPERVISING PHYSICIAN: Leonidas Malloy MD DATE: 02/06/19 SUBJECTIVE: The patient is sitting up in her room. Her is at the bedside. She has no complaints of nausea, vomiting, diarrhea, chest pain. She does occasionally have some shortness of breath and coughing, but it is mild. She denies any constipation and says she had a good bowel movement yesterday morning, but has not had one today. OBJECTIVE: VITAL SIGNS: Temperature 98.1. Heart rate 66. Blood pressure 107/67. Respiratory rate 18. O2 saturation 94% on room air. RESPIRATORY: Diminished breath sounds throughout with diffuse scattered rhonchi. Otherwise, no crackles. CARDIAC: Regular rate and rhythm. GASTROINTESTINAL: Abdomen is soft, nondistended, nontender. Bowel sounds are positive. EXTREMITIES: No cyanosis, clubbing or edema. NEUROLOGIC: Awake, alert and oriented times three. LABORATORY: WBCs 6.6, hemoglobin 9.2, hematocrit 27.8. Electrolytes are basically within normal limits with the exception of her BUN slightly high at 20, creatinine 1.28. Calcium is slightly low at 8.2. Sputum culture is pending. Chest x-ray shows multifocal pneumonia. All other labs and films have been reviewed via the EMR. ASSESSMENT: 1. Community acquired pneumonia, multifocal, with concerns for possible atypical pneumonia or streptococcus pneumoniae, awaiting sputum cultures. 2. Acute exacerbation of chronic obstructive pulmonary disease secondary to #1. 3. Acute abdominal pain, unknown etiology. She initially had nausea, vomiting and diarrhea. There were no acute findings on CT. She was seen by Dr. Calvin today in consultation. Her abdominal symptoms have resolved. 4. Atrial fibrillation on chronic Coumadin therapy with a subtherapeutic PT today. 5. Congestive heart failure with a diastolic dysfunction. Last echocardiogram shows an ejection fraction of 55%. She has no signs of acute failure. 6. Type 2 diabetes mellitus on insulin therapy. 7. History of gout. 8. History of hypertension. 9. Elevated bilirubin on admission with need for further workup. PLAN: We will continue present supportive care. Per Dr. Calvin's recommendation, I have advanced her diet to a clear liquid. She has had no further complaints of abdominal pain. I have given her some guaifenesin for her cough. I will repeat her lab tomorrow as well as chest x-ray. We will continue to monitor the patient closely and follow as needed. [facility][id number] [facility]
[2019-02-06] MEDS ORDERED: traMADol HCL 50 MG TAB PO ONE (16:46)
[2019-02-06] MEDS ORDERED: traMADol HCL 50 MG TAB PO PRN (18:08)
[2019-02-06] MEDS ORDERED: VANCOMYCIN ORAL LIQUID 2,000 MG/80 ML BOTTLE PO SCH (18:30)
[2019-02-06] MEDS: ALLOPURINOL 300 MG TAB PO SCH (20:54)
[2019-02-06] MEDS: AMIODARONE HCL 200 MG TAB PO SCH (20:54)
[2019-02-06] MEDS: guaiFENesin ER TAB 600 MG TAB PO SCH (20:54)
[2019-02-06] MEDS: GABAPENTIN 300 MG CAP PO SCH (20:54)
[2019-02-06] MEDS: METOPROLOL TARTRATE 25 MG TAB PO SCH (20:54)
[2019-02-06] MEDS: VANCOMYCIN ORAL LIQUID 2,000 MG/80 ML BOTTLE PO SCH (20:55)
[2019-02-07] MEDS: VANCOMYCIN ORAL LIQUID 2,000 MG/80 ML BOTTLE PO SCH ×4 (03:10→21:33)
--- NOTE | 2019-02-07 07:10 | RAD ---
EXAM: Two view chest. INDICATION: Pneumonia. COMPARISON: Chest x-ray: 02/06/2019. FINDINGS: Again noted are left upper lobe and right lower lobe airspace opacities. There are grossly stable diffuse interstitial opacities. The heart size is stable. There is no pneumothorax or pleural effusion. The bones are unchanged. IMPRESSION: No significant change compared to the prior exam. Grossly stable left upper lobe and right lower lobe opacities, likely representing multifocal pneumonia Electronically signed by: Amari Garcia MD 02/07/2019 7:07 AM CDT Workstation: [id number]
[2019-02-07] MEDS: INSULIN LISPRO 100 UNITS/ML PEN SUBCU SCH ×4 (07:29→21:32)
[2019-02-07] MEDS ORDERED: INSULIN, REG.(HUMAN) 100 U/ML VIAL ONE (07:36)
[2019-02-07] MEDS: DEXTROSE 5% IVS PRN (08:23)
[2019-02-07] MEDS: [UNRECOGNIZED DRUG - OTHER] IVS PRN (08:23)
[2019-02-07] MEDS: LEVALBUTEROL NEBS 1.25 MG/3 ML VIAL NEB SCH ×4 (08:46→20:23)
[2019-02-07] MEDS: guaiFENesin ER TAB 600 MG TAB PO SCH ×2 (09:01→21:32)
[2019-02-07] MEDS: NON-FORMULARY MEDICATION 1 EA MIS (Triamterene & Hydrochlorothiaz [Triamterene/Hydrochloro PO SCH (09:08)
[2019-02-07] MEDS: WARFARIN SODIUM 2.5 MG TAB PO SCH (12:46)
[2019-02-07] MEDS ORDERED: MAGNESIUM SULFATE PREMIX 2GM 2 GM in PREMIX BAG 1 BAG IVPB ONE (18:15)
[2019-02-07] MEDS ORDERED: MAGNESIUM SULFATE PREMIX 2GM 50 ML IVPB ONE (18:25)
--- NOTE | 2019-02-07 18:53 | PN ---
DATE: 02/07/19 SUPERVISING PHYSICIAN: Parveen Malloy M.D. SUBJECTIVE: The patient is sitting up in bed. She is still having quite a bit of diarrhea as well as some exertional shortness of breath, but she continues to feel somewhat stronger. She is still having pleuritic type pain on occasion, but again that is improving as well. She had some nausea but she says she has that frequently anyway and she has had no vomiting. OBJECTIVE: Temperature 99.2, heart rate 76, blood pressure 134/78, respiratory rate 16, O2 sat 92% on room air. RESPIRATORY: Diminished breath sounds throughout but mostly clear to auscultation. CARDIAC: Regular rate and rhythm. GASTROINTESTINAL: Abdomen is soft, nondistended, non-tender. Bowel sounds are positive. NEUROLOGIC: She is awake, alert and oriented times three. LABORATORY: White count is 5.7 with a hemoglobin 9.8, hematocrit 29.9. Electrolytes are basically within normal limits with the exception of her BUN is 20 and creatinine is 1.12. Blood sugars have run between 121 and 148. Magnesium is slightly low at 1.7. Stool culture is pending. Stool for leukocytes shows the presence of elevated fecal lactoferrin. Clostridium Difficile is positive for Clostridium Difficile antigen, negative for Clostridium Difficile toxin. Sputum culture is still pending. Chest x-ray shows no significant changes compared to the prior exam. Grossly stable left upper lobe and right lower lobe opacities likely representing multifocal pneumonia. All other labs and films have been reviewed via the EMR. ASSESSMENT: 1. Community acquired pneumonia, multifocal, with concerns for possible atypical pneumonia or streptococcus pneumoniae, awaiting sputum cultures. 2. Acute exacerbation of chronic obstructive pulmonary disease secondary to #1. 3. Acute abdominal pain with diarrhea. There were no acute findings on CT. She was seen by Dr. Calvin in consultation. She continues to have diarrhea. She was positive for Clostridium Difficile antigen, negative for the Clostridium Difficile toxin. 4. Atrial fibrillation on chronic Coumadin therapy with a subtherapeutic PT today. 5. Congestive heart failure with a diastolic dysfunction. Last echocardiogram shows an ejection fraction of 55%. She has no signs of acute failure. 6. Type 2 diabetes mellitus on insulin therapy. 7. History of gout. 8. History of hypertension. 9. Elevated bilirubin on admission with need for further workup. PLAN: We will continue present supportive care, including her aggressive pulmonary hygiene and continue with her present antibiotics, and will watch her for her sputum culture. I will also watch for her stool culture. We have started her on p.o. vancomycin for her Clostridium Difficile treatment. I will hold on lab tomorrow and will recheck it again on Tuesday. Hopefully she can be discharged if she is clinically stable and it has improved. Otherwise we will continue to monitor closely and follow as needed. [facility][id number] [facility]
[2019-02-07] MEDS ORDERED: levoFLOXacin 750MG IV 750 MG in PREMIX BAG 1 BAG IVPB SCH (20:00)
[2019-02-07] MEDS: METOPROLOL TARTRATE 25 MG TAB PO SCH (21:31)
[2019-02-07] MEDS: AMIODARONE HCL 200 MG TAB PO SCH (21:31)
[2019-02-07] MEDS: ALLOPURINOL 300 MG TAB PO SCH (21:32)
[2019-02-07] MEDS: GABAPENTIN 300 MG CAP PO SCH (21:32)
[2019-02-08] MEDS: VANCOMYCIN ORAL LIQUID 2,000 MG/80 ML BOTTLE PO SCH ×4 (03:03→21:27)
[2019-02-08] MEDS: INSULIN LISPRO 100 UNITS/ML PEN SUBCU SCH ×4 (07:18→21:22)
[2019-02-08] MEDS ORDERED: FUROSEMIDE INJ 40 MG/4 ML VIAL IV ONE (08:04)
[2019-02-08] MEDS: LEVALBUTEROL NEBS 1.25 MG/3 ML VIAL NEB SCH ×4 (08:48→20:47)
[2019-02-08] MEDS: NON-FORMULARY MEDICATION 1 EA MIS (Triamterene & Hydrochlorothiaz [Triamterene/Hydrochloro PO SCH (08:54)
[2019-02-08] MEDS: guaiFENesin ER TAB 600 MG TAB PO SCH ×2 (08:55→21:22)
[2019-02-08] MEDS: WARFARIN SODIUM 2.5 MG TAB PO SCH (12:12)
[2019-02-08] MEDS: IV SET AND CAP CHANGE INJ INJ SCH (18:20)
[2019-02-08] MEDS: AMIODARONE HCL 200 MG TAB PO SCH (21:21)
[2019-02-08] MEDS: METOPROLOL TARTRATE 25 MG TAB PO SCH (21:22)
[2019-02-08] MEDS: GABAPENTIN 300 MG CAP PO SCH (21:22)
[2019-02-08] MEDS: ALLOPURINOL 300 MG TAB PO SCH (21:22)
[2019-02-09] MEDS: VANCOMYCIN ORAL LIQUID 2,000 MG/80 ML BOTTLE PO SCH ×3 (02:43→15:59)
--- NOTE | 2019-02-09 07:25 | RAD ---
EXAM DESCRIPTION: Chest,2 Views: CHRIS/ CLINICAL HISTORY: 78 years Female PNA COMPARISON: 2 view chest x-ray 02/07/2019. TECHNIQUE: Two views. PA and Lateral. FINDINGS: Lungs: Bilateral air trapping again noted with patchy infiltrate in the right lower lobe and scarring in the inferior lingula. Persistent bilateral interstitial markings.. Pleural spaces: Minimal thickening and possible small effusion left base is increased slightly. No pneumothorax. Heart: Borderline enlarged and stable. Pulmonary Vascularity: Not increased. Mediastinum: Not widened. Aorta: Atherosclerotic changes. Bony Thorax/Spine: No acute bony thoracic abnormalities. [Stable with decreased bone density. IMPRESSION: Stable air trapping bilaterally and interstitial process. Persistent pneumonia in the right base and lower lobe. Small effusion on the left may be increasing. Electronically signed by: Deion Mathews MD 02/09/2019 7:22 AM CDT
[2019-02-09] MEDS: INSULIN LISPRO 100 UNITS/ML PEN SUBCU SCH ×2 (08:01→12:13)
[2019-02-09] MEDS ORDERED: INSULIN, REG.(HUMAN) 100 U/ML VIAL ONE (08:06)
[2019-02-09] MEDS: NON-FORMULARY MEDICATION 1 EA MIS (Triamterene & Hydrochlorothiaz [Triamterene/Hydrochloro PO SCH (08:26)
[2019-02-09] MEDS: guaiFENesin ER TAB 600 MG TAB PO SCH (08:31)
[2019-02-09] MEDS: LEVALBUTEROL NEBS 1.25 MG/3 ML VIAL NEB SCH ×3 (09:00→19:17)
[2019-02-09] MEDS ORDERED: WARFARIN SODIUM 2.5 MG TAB ONE (12:12)
[2019-02-09] MEDS: WARFARIN SODIUM 2.5 MG TAB PO SCH (12:23)
[2019-02-09 15:02] VITALS: BP 108/68; TEMP 98.6; O2SAT 98
--- NOTE | 2019-02-12 13:23 | PN ---
SUPERVISING PHYSICIAN: Parveen Malloy M.D. DATE: 02/08/19 SUBJECTIVE: The patient is sitting up in bed. She is somewhat short of breath today. She is slightly tachypneic, but she does feel a little bit better. I encouraged her to ambulate in the hallways and otherwise, she denies chest pain, nausea, vomiting, diarrhea. OBJECTIVE: Afebrile with temperature 98.9. Heart rate 65. Blood pressure 107/64. Respiratory rate 18. O2 saturation 96% on room air. RESPIRATORY: A few scattered crackles throughout with no noted expiratory wheezes or rhonchi. CARDIAC: Regular rate and rhythm. GASTROINTESTINAL: Abdomen is soft, nondistended, nontender. Bowel sounds are positive. EXTREMITIES: She has a trace of pedal edema, otherwise, no cyanosis or clubbing. NEUROLOGIC: She is awake, alert and oriented times three. Cranial nerves II-XII are grossly intact. LABORATORY: Blood sugars are running between 96 and 117. All other labs and films have been reviewed via the EMR. ASSESSMENT: 1. Community acquired pneumonia, multifocal, with concerns for possible atypical pneumonia or streptococcus pneumoniae, awaiting sputum cultures. 2. Acute exacerbation of chronic obstructive pulmonary disease secondary to #1. 3. Acute abdominal pain with diarrhea. There were no acute findings on CT. She was seen by Dr. Calvin in consultation. She continues to have diarrhea. She was positive for Clostridium Difficile antigen, negative for the Clostridium Difficile toxin. 4. Atrial fibrillation on chronic Coumadin therapy with a subtherapeutic PT today. 5. Congestive heart failure with a diastolic dysfunction. Last echocardiogram shows an ejection fraction of 55%. She has no signs of acute failure. 6. Type 2 diabetes mellitus on insulin therapy. 7. History of gout. 8. History of hypertension. 9. Elevated bilirubin on admission with need for further workup. PLAN: We will continue present supportive care. I will give her some Lasix as she maybe slightly fluid overloaded. She will continue on her p.o. vancomycin for her C. difficile as well as Levaquin. I have encouraged her to ambulate in the halls as well as continue good pulmonary hygiene. Hopefully she can be discharged tomorrow with close followup with Dr. Ramsay. We will continue to monitor closely and follow as needed. #[id number] [facility]
--- NOTE | 2019-02-26 08:37 | DS ---
SUPERVISING PHYSICIAN: Parveen Malloy MD ADMISSION DIAGNOSES: 1. Community acquired pneumonia, multifocal, with concerns for possible atypical pneumonia or streptococcus pneumoniae. 2. Acute exacerbation of chronic obstructive pulmonary disease secondary to #1. 3. Acute abdominal pain with nausea, vomiting, diarrhea, with no acute findings on CT with concerns for possible early diverticulitis versus enteritis versus ileus. No evidence of obstruction. 4. Chronic atrial fibrillation on chronic Coumadin therapy. 5. Congestive heart failure with a diastolic dysfunction with last echocardiogram showing an ejection fraction of 55% with no signs of exacerbation. 6. Type 2 diabetes mellitus on insulin therapy. 7. History of gout. 8. History of hypertension with ejection fraction of 55% on last echocardiogram. 9. Elevated bilirubin, uncertain etiology, needing further workup.normal limits. Lipase normal at 32. DISCHARGE DIAGNOSES: 1. Community acquired pneumonia, multifocal, with concerns for possible atypical pneumonia or streptococcus pneumoniae, awaiting sputum cultures. 2. Acute exacerbation of chronic obstructive pulmonary disease secondary to #1. 3. Acute abdominal pain with diarrhea. There were no acute findings on CT. She was seen by Dr. Calvin in consultation. She continues to have diarrhea. She was positive for Clostridium Difficile antigen, negative for the Clostridium Difficile toxin. 4. Atrial fibrillation on chronic Coumadin therapy with a subtherapeutic PT today. 5. Congestive heart failure with a diastolic dysfunction. Last echocardiogram shows an ejection fraction of 55%. She has no signs of acute failure. 6. Type 2 diabetes mellitus on insulin therapy. 7. History of gout. 8. History of hypertension. 9. Elevated bilirubin on admission with need for further workup. REASON FOR HOSPITALIZATION: Ms. Ramsay is a 78 year-old female who presented to Dr. Ramsay's office this morning for evaluation of some nausea, vomiting, diarrhea, that had developed over the last 3 days. She had not been able to eat or hold anything down over the weekend and has now developed a cough. She noted she had lesley running a fever up to 101 at home. She was complaining of some abdominal pain, more so on the left. She does have a history of diverticulosis and having a previous colon resection in 2010. Laboratory studies showed she did have an elevated bilirubin at 1.7, CBC was pending at time of admission. Lipase was normal. Abdominal series in the Emergency Room in the clinic showed possible fluid levels concerning for a possible ileus. Dr. Ramsay has requested the patient be admitted directly to the hospital for further evaluation of the abdominal pain as well as concerns for developing pneumonia versus congestive heart failure exacerbation. She is admitted in stable condition. CONSULTATION: Jt Calvin MD. Please see his consultation note. LABORATORY: White count on admission was 6,600, discharge 5,300. Hemoglobin at discharge 9.3, hematocrit 28.1. Platelet count initially 84,000, be discharge it was up to 109,000. Differential showed to be without a left shift. Coagulation studies showed initial PT of 17.8, PTT of 36.3, INR 1.79. At discharge, PT was 24.3, INR 2.45. Initial chemistries on admission showed normal electrolytes, BUN 18, creatinine 1.28. At discharge, electrolytes showed potassium 3.1, otherwise within normal limits. BUN 14, creatinine 1.02. Blood sugars ranged between 96 and 140. Magnesium was low initially at 1.7, it was replaced and was 1.9 at discharge. Liver functions showing to be slightly elevated on admission with 1.7 bilirubin. Troponin 0.02. MICROBIOLOGY: Sputum culture was cancelled due to poor specimen. C-difficile was negative for toxin by PCR. Final culture results on urine showed normal enteric esdras recovered. HOSPITAL COURSE: Ms. Ramsay was admitted on 02/05/19 with nausea, vomiting, diarrhea. She was started on antibiotics with Levaquin, we held off on Flagyl due to her history of being on amiodarone. Dr. Calvin was consulted. Please see his note for full details. She was started on treatment for C. difficile toxin with oral vancomycin and showed good response to treatment plan and was felt clinically to be well enough to be discharged to continue outpatient management. PLAN: Ms. Ramsay was discharged on 02/09/19 with instructions to followup with Dr. Ramsay the week after discharge. She was to resume home medications as instructed and return to the hospital should she have any concerning symptoms. DISCHARGE DIET: Low-fat diet as tolerated. ACTIVITIES: Increase as tolerated. DISCHARGE MEDICATIONS: 1. Vancomycin 125 mg orally every 6 hours, #40. 2. Lactobacillus 1 tablet twice a day, #60. 3. Levaquin 500 mg daily, #6. No refills. CONDITION ON DISCHARGE: Stable and improving. DISPOSITION: Patient was discharged to care of family. #[id number] [facility]
== END 2019-02-09 16:20 | disposition home or self-care (01) | DRG 194 ==
LOC: GMAM 15:19 → MS 16:25
PROVIDERS: ADMIT Nurse Practitioner Family; ATTEND Nurse Practitioner Family
DX: J18.9 Pneumonia, unspecified organism (principal); J44.0 Chronic obstructive pulmonary disease with (acute) lower respiratory infection; I50.32 Chronic diastolic (congestive) heart failure; J44.1 Chronic obstructive pulmonary disease with (acute) exacerbation; E83.42 Hypomagnesemia; I48.2 Chronic atrial fibrillation; I11.0 Hypertensive heart disease with heart failure; E11.9 Type 2 diabetes mellitus without complications; M10.9 Gout, unspecified; G47.30 Sleep apnea, unspecified; I25.10 Atherosclerotic heart disease of native coronary artery without angina pectoris; E78.5 Hyperlipidemia, unspecified; Z88.1 Allergy status to other antibiotic agents; Z88.3 Allergy status to other anti-infective agents; Z88.7 Allergy status to serum and vaccine; Z88.0 Allergy status to penicillin; Z88.2 Allergy status to sulfonamides; Z88.8 Allergy status to other drugs, medicaments and biological substances; Z88.6 Allergy status to analgesic agent; Z90.49 Acquired absence of other specified parts of digestive tract; Z79.4 Long term (current) use of insulin; Z79.01 Long term (current) use of anticoagulants; Z87.891 Personal history of nicotine dependence; Z79.891 Long term (current) use of opiate analgesic; Z79.899 Other long term (current) drug therapy

== ENCOUNTER → 2019-03-06 | Outpatient (CLI) | payer MEDICARE, OTHER | LOC: GRHH 12:43 | PROVIDERS: ATTEND Family Medicine | DX: I50.22 Chronic systolic (congestive) heart failure (principal); E11.9 Type 2 diabetes mellitus without complications; I10 Essential (primary) hypertension; E03.0 Congenital hypothyroidism with diffuse goiter; Z79.01 Long term (current) use of anticoagulants; Z51.81 Encounter for therapeutic drug level monitoring ==

== ENCOUNTER → 2019-04-16 | Outpatient (CLI) | payer MEDICARE, OTHER | LOC: GMAM 14:44 | PROVIDERS: ATTEND Family Medicine | DX: D53.9 Nutritional anemia, unspecified (principal); I10 Essential (primary) hypertension ==

== ENCOUNTER → 2019-05-03 | Outpatient (CLI) | payer MEDICARE, OTHER ==
--- NOTE | 2019-05-04 16:59 | RAD ---
EXAM DESCRIPTION: Pelvis CLINICAL HISTORY: M25.552 COMPARISON: A October 2017 TECHNIQUE: AP pelvis FINDINGS: Mild loss of joint space is observed in both hips. Mild diffuse osteopenia is observed. No fracturing is detected. Calcific atherosclerotic changes are observed in the iliac vessels. Chain sutures observed in the left side of the pelvis. IMPRESSION: Degenerative changes are observed in the pelvis and hips. No fracturing is detected Electronically signed by: Joel Lopez MD 05/04/2019 4:57 PM CDT
--- NOTE | 2019-05-04 17:00 | RAD ---
EXAM DESCRIPTION: Hip,Left 2 Views CLINICAL HISTORY: M25.552 COMPARISON: 21 October 2017 TECHNIQUE: 2 views left FINDINGS: Mild acetabular osteophyte formation is observed. No hip fracturing is detected. IMPRESSION: Minimal degenerative changes are observed. No fracturing is detected. Electronically signed by: Joel Lopez MD 05/04/2019 4:58 PM CDT
== END ==
LOC: RAD 08:39
PROVIDERS: ATTEND Orthopaedic Surgery
DX: M16.12 Unilateral primary osteoarthritis, left hip (principal); M47.898 Other spondylosis, sacral and sacrococcygeal region

== ENCOUNTER → 2019-05-03 | Day surgery (SDC) | payer MEDICARE, OTHER | LOC: AMB 11:15 | PROVIDERS: ATTEND Orthopaedic Surgery | DX: Z01.812 Encounter for preprocedural laboratory examination (principal); Z53.9 Procedure and treatment not carried out, unspecified reason ==

== ENCOUNTER → 2019-05-14 | Outpatient (CLI) | payer MEDICARE, OTHER ==
--- NOTE | 2019-05-14 14:04 | CT ---
EXAM DESCRIPTION: Abdoment/Pelvis w/o Contrast CLINICAL HISTORY: 78 years Female, ABD PN COMPARISON: CT abdomen and pelvis dated 02/05/2019. TECHNIQUE: Contiguous 3 mm axial images were obtained from the lung bases to the level of the proximal femora without the administration of intravenous or oral contrast. Sagittal and coronal reconstructions were reviewed. FINDINGS: Limited evaluation of the solid organs due to the lack of intravenous contrast. THORAX: Atelectasis is noted in the visualized bilateral lung bases. LIVER: The liver demonstrates a slightly nodular contour which can be seen with cirrhosis. Few hypodense lesions are identified probably representing simple cysts. GALLBLADDER: Absent. PANCREAS: Appears normal with no cystic or solid lesions. SPLEEN: The spleen is mildly enlarged in size measuring 13.2 x 12 x 4.9 cm. ADRENAL GLANDS: Normal with no nodules or masses. KIDNEYS: Both kidneys are symmetric in size and contour with no hydronephrosis or nephrolithiasis or perinephric fluid collections. The visualized ureters appear grossly unremarkable. STOMACH: Small hiatal hernia with evidence of reflux. The stomach is not well-distended limiting detailed evaluation. SMALL BOWEL: The small bowel loops demonstrate variable degrees of distention with no abnormal dilatation or other signs to suggest bowel obstruction. LARGE BOWEL: Few scattered diverticuli are identified. Changes of surgery are identified in the sigmoid colon. The appendix is not definitively visualized. No evidence of free intraperitoneal air. Small amount of free fluid is noted in the pelvis. RETROPERITONEUM: The abdominal aorta is nonaneurysmal with mild to moderate atherosclerosis. The inferior vena cava is normal in size and caliber. No abnormally enlarged retroperitoneal lymph nodes are identified. URINARY BLADDER:The urinary bladder is well-distended with no gross abnormality. The uterus and ovaries are not visualized and are probably surgically absent. ADDITIONAL FINDINGS: None. BONES: Mild degenerative changes are identified in the visualized bones. The visualized bones appear osteopenic. IMPRESSION: 1. Colonic diverticulosis with no acute inflammation. 2. Nodular contour of the liver could be secondary to cirrhosis. 3. Mild splenomegaly. This exam was performed according to our departmental dose-optimization program, which includes automated exposure control, adjustment of the mA and/or kV according to patient size and/or use of iterative reconstruction technique. Electronically signed by: Danielle Salas MD 05/14/2019 2:02 PM CDT
== END ==
LOC: CT 12:15
PROVIDERS: ATTEND Family Medicine
DX: K57.30 Diverticulosis of large intestine without perforation or abscess without bleeding (principal); K76.9 Liver disease, unspecified; R16.1 Splenomegaly, not elsewhere classified

== ENCOUNTER → 2019-06-26 | Outpatient (CLI) | payer MEDICARE, OTHER | LOC: GMAM 10:54 | PROVIDERS: ATTEND Family Medicine | DX: E53.8 Deficiency of other specified B group vitamins (principal); E89.0 Postprocedural hypothyroidism; I10 Essential (primary) hypertension; E11.9 Type 2 diabetes mellitus without complications; M10.9 Gout, unspecified ==

== ENCOUNTER → 2019-10-31 | Outpatient (CLI) | payer MEDICARE, OTHER ==
--- NOTE | 2019-11-01 07:42 | MRI ---
Study: MRI of the Right Hip. Indication: BURSITIS OF HIP Technique: Multiplanar, multi sequence MRI of the right hip was obtained without intravenous contrast. Comparison: None. Findings: Grade 4 chondrosis and subchondral cystic change throughout the anterior superior acetabulum. Additional irregular grade 3-4 chondral thinning throughout the right hip joint. Small joint line osteophytes. Degeneration throughout the anterior superior and superior aspects of the right hip labrum. No acute fracture or osteonecrosis. Tendinosis bilateral hamstring tendon origins. Tendinosis bilateral gluteus minimus/medius tendon insertions, left greater than right, with bilateral mild greater trochanter bursal edema. Minimal intramuscular edema in the right quadratus femoris muscle belly which can be seen with ischiofemoral impingement. Trace free pelvic fluid. Lower lumbar disc disease. At least moderate left hip osteoarthritis. Impression: Moderate to severe right hip osteoarthritis with associated labral degeneration. No acute fracture or osteonecrosis. Tendinosis bilateral gluteus minimus/medius tendon insertions with mild bilateral greater trochanteric bursal edema. No tendon rupture. Additional findings as above. Electronically signed by: Ronald Hanson MD 11/01/2019 7:40 AM [facility]
== END ==
LOC: MRI 09:00
PROVIDERS: ATTEND Orthopaedic Surgery
DX: M70.71 Other bursitis of hip, right hip (principal); M16.11 Unilateral primary osteoarthritis, right hip; M76.01 Gluteal tendinitis, right hip; M76.02 Gluteal tendinitis, left hip; R60.0 Localized edema

== ENCOUNTER → 2020-03-21 | Outpatient (CLI) | payer MEDICARE, OTHER | LOC: ECHO 11:32 | PROVIDERS: ATTEND Family Medicine | DX: I25.10 Atherosclerotic heart disease of native coronary artery without angina pectoris (principal); I51.7 Cardiomegaly ==

== ENCOUNTER → 2020-03-31 | Outpatient (CLI) | payer MEDICARE, OTHER | LOC: LAB.O 09:17 | PROVIDERS: ATTEND Orthopaedic Surgery | DX: Z01.818 Encounter for other preprocedural examination (principal) ==

== ENCOUNTER → 2020-04-03 | Outpatient (CLI) | payer MEDICARE, OTHER | LOC: NM 09:00 | PROVIDERS: ATTEND Family Medicine | DX: I51.7 Cardiomegaly (principal); R94.39 Abnormal result of other cardiovascular function study ==

== ENCOUNTER 2020-04-15 05:44 | Inpatient (IN) | payer MEDICARE, OTHER ==
[2020-04-15] MEDS ORDERED: LACTATED RINGERS 1,000 ML ONE (05:51)
[2020-04-15] MEDS ORDERED: SODIUM CHL 0.9% 100ML MINI-BAG 100 ML IVPB ONE (05:51)
[2020-04-15] MEDS ORDERED: SODIUM CHLORIDE 0.9% 250ML 250 ML ONE ×2 (05:51→23:13)
[2020-04-15] MEDS ORDERED: SODIUM CHLORIDE 0.9% 100ML 0 ML IVPB ONE (05:51)
[2020-04-15] MEDS ORDERED: TRANEXAMIC ACID 1,000 MG/10 ML VIAL ONE (05:52)
[2020-04-15] MEDS ORDERED: ceFAZolin SODIUM 1 GM VIAL ONE (05:52)
[2020-04-15] MEDS ORDERED: VANCOMYCIN HCL INJ 1,000 MG VIAL IVPB ONE ×2 (05:52→23:11)
[2020-04-15] MEDS ORDERED: SODIUM CHLORIDE 0.9% 100ML 100 ML IVPB ONE (06:05)
[2020-04-15] MEDS ORDERED: MIDAZOLAM INJ 2 MG/2 ML VIAL ONE ×2 (06:32→06:57)
[2020-04-15] MEDS ORDERED: HYDROmorphone HCL INJ 2 MG/ML VIAL ONE (06:32)
[2020-04-15] MEDS ORDERED: FAMOTIDINE INJ 10 MG/ML VIAL IV ONE ×2 (07:00→07:45)
[2020-04-15] MEDS ORDERED: PROPOFOL 200 MG/20 ML VIAL IV ONE (07:00)
[2020-04-15] MEDS ORDERED: ePHEDrine SULF 50 MG/ML ONE (07:00)
[2020-04-15] MEDS ORDERED: EPINEPHrine HCL AMP 1 MG/ML AMP ONE (07:00)
[2020-04-15] MEDS ORDERED: DEXAMETHASONE INJ 10 MG/ML VIAL ONE (07:00)
[2020-04-15] MEDS ORDERED: MAGNESIUM SULFATE INJ 1 GM/2 ML VIAL ONE (07:00)
[2020-04-15] MEDS ORDERED: LIDOCAINE 1% 10 ML VIAL INJ ONE (07:00)
[2020-04-15] MEDS: ceFAZolin SODIUM 1 GM VIAL ONE ×3 (07:45→08:28)
[2020-04-15] MEDS: VANCOMYCIN HCL INJ 1,000 MG VIAL IVPB ONE ×2 (07:47→08:28)
[2020-04-15] MEDS: BUPIVACAINE 0.5% 30 ML VIAL INJ ONE ×2 (07:48→08:50)
[2020-04-15] MEDS: BUPIVACAINE LIPOSOME 13.3 MG/ML VIAL INJ ONE ×2 (07:48→08:50)
[2020-04-15] MEDS ORDERED: ELECTROLYTE-A 1,000 ML IVS ONE (08:05)
[2020-04-15] MEDS ORDERED: ACETAMINOPHEN 500 MG TAB PO PRN (09:14)
[2020-04-15] MEDS ORDERED: MORPHINE SULFATE INJ 10 MG/ML VIAL IV PRN (09:14)
[2020-04-15] MEDS ORDERED: traMADol HCL 50 MG TAB PO PRN (09:14)
[2020-04-15] MEDS ORDERED: PROMETHAZINE HCL INJ 12.5 MG in SODIUM CHLORIDE 0.9% 50ML 50 ML IVPB PRN (09:14)
[2020-04-15] MEDS ORDERED: MORPHINE SULFATE INJ 10 MG/ML VIAL IM PRN (09:14)
[2020-04-15] MEDS ORDERED: TRANEXAMIC ACID INJ 1,000 MG in SODIUM CHLORIDE 0.9% 100ML 100 ML IVPB ONE (09:14)
[2020-04-15] MEDS ORDERED: NALOXONE HCL INJ 0.4 MG/ML VIAL IV PRN (09:14)
[2020-04-15] MEDS ORDERED: DEX 5% W/NACL 0.45% 1000ML 1,000 ML IVS PRN (09:14)
[2020-04-15] MEDS ORDERED: ZOLPIDEM TARTRATE 5 MG TAB PO PRN (09:14)
[2020-04-15] MEDS ORDERED: SODIUM CHLORIDE 0.9% (FLUSH) 10 ML SYG IV PRN (09:14)
[2020-04-15] MEDS ORDERED: TEMAZEPAM 15 MG CAP PO PRN (09:14)
[2020-04-15] MEDS ORDERED: BISACODYL SUPPOSITORY 10 MG PR PRN (09:14)
[2020-04-15] MEDS ORDERED: MAGNESIUM HYDROXIDE 30 ML UD PO PRN (09:14)
[2020-04-15] MEDS ORDERED: ACETAMINOPHEN 325 MG TAB PO PRN (09:14)
[2020-04-15] MEDS ORDERED: BENZOCAINE-MENTH LOZ (CEPACOL) 1 EA LOZ MT PRN (09:14)
[2020-04-15] MEDS ORDERED: PROMETHAZINE HCL INJ 25 MG in SODIUM CHLORIDE 0.9% 50ML 50 ML IVPB PRN (09:14)
[2020-04-15] MEDS ORDERED: ALUMINUM & MAGNESIUM HYDROXIDE 30 ML UD PO PRN (09:14)
[2020-04-15] MEDS ORDERED: IV SET AND CAP CHANGE INJ INJ SCH (09:30)
[2020-04-15] MEDS ORDERED: MORPHINE PCA 1 MG/ML 100 ML BAG IVPB SCH (09:30)
[2020-04-15] MEDS ORDERED: CADD ADMIN SET 1 EA PKG INJ ONE (09:51)
[2020-04-15] MEDS ORDERED: SCOPOLAMINE PATCH 1.5MG 1 EA TD ONE ×2 (09:56→10:05)
[2020-04-15] MEDS: ONDANSETRON INJ 4 MG/2 ML VIAL IV PRN (09:57)
[2020-04-15] MEDS ORDERED: HALOPERIDOL LACTATE INJ 5 MG/ML VIAL ONE (10:34)
[2020-04-15] MEDS ORDERED: PROMETHAZINE HCL INJ 25 MG/ML VIAL ONE (11:05)
[2020-04-15] MEDS ORDERED: SODIUM CHLORIDE 0.9% 50ML 50 ML ONE (11:06)
--- NOTE | 2020-04-15 11:17 | RAD ---
EXAM DESCRIPTION: Pelvis x-ray one view CLINICAL HISTORY: 79 years Female, post-op COMPARISON: None. FINDINGS: X-ray pelvis shows total right hip arthroplasty. Bones appear osteopenic or osteoporotic. Degenerative narrowing of the pubic symphysis. Degenerative changes in lower lumbar spine. Sacrum and bones of the pelvic ring appear intact. Left hip joint space narrowing with spurring. No left hip fracture is evident. IMPRESSION: Negative for fracture. Electronically signed by: Ghanshyam Rosales MD 04/15/2020 11:15 AM CDT
--- NOTE | 2020-04-15 11:18 | RAD ---
EXAM DESCRIPTION: Hip x-ray,Right 2 Views CLINICAL HISTORY: 79 years, Female, post-op COMPARISON: None TECHNIQUE: AP and frog leg lateral views of the right hip FINDINGS: 2 views of the right hip reveal total right hip arthroplasty with anatomic alignment of acetabular and femoral components and no complicating fracture. No lucency of the surrounding bone to suggest osteolysis. No lytic bone lesion. Right hemipelvis and sacrum appear intact. IMPRESSION: Negative for fracture or dislocation. Electronically signed by: Ghanshyam Rosales MD 04/15/2020 11:17 AM CDT
[2020-04-15] MEDS ORDERED: GLUCAGON INJ 1 MG VIAL SUBCU PRN (12:03)
[2020-04-15] MEDS ORDERED: DEXTROSE 50% 25 GM/50 ML SYG IV PRN (12:03)
[2020-04-15] MEDS ORDERED: INSULIN DETEMIR 100 UNITS/ML PEN SUBCU ONE (12:04)
[2020-04-15] MEDS: INSULIN LISPRO 100 UNITS/ML PEN SUBCU SCH ×2 (16:39→20:58)
[2020-04-15] MEDS: CELECOXIB 100 MG CAP PO SCH (17:04)
--- NOTE | 2020-04-15 18:23 | CONS ---
SUPERVISING PHYSICIAN: Dave Ramirez MD REASON FOR CONSULTATION: Medical management status post right hip replacement. HISTORY OF PRESENT ILLNESS: Ms. Ramsay is an 79-year-old female patient that was admitted for elective right total hip arthroplasty. She tried multiple procedures as an outpatient and conservative measures for treatment of underlying right hip pain secondary to osteoarthritis. She had no intraoperative complications and was seen in the immediate postoperative state. She was in stable condition at time of consultation. PAST MEDICAL HISTORY: 1. Paroxysmal atrial fibrillation, chronic, on Coumadin therapy, currently in sinus rhythm, having been off Coumadin prior to surgery. 2. Congestive heart failure with last echocardiogram in 2007 showing diastolic dysfunction with ejection fraction 55%. 3. Coronary artery disease. 4. Hyperlipidemia. 5. Hypertension. 6. Chronic obstructive pulmonary disease. 7. Sleep apnea, not utilizing CPAP. 8. History of diverticulosis with diverticulitis in the past requiring previous colon resection in 2010. 9. Type 2 diabetes mellitus. 10. Gout. PAST SURGICAL HISTORY: 1. Cholecystectomy. 2. Colon resection in [address] Calvin with sigmoidectomy and primary anastomosis for complications due to diverticulitis. 3. Thyroidectomy in 2016 with thyroid nodules removed by Dr. Gotti on the right. 4. Bilateral cataract removal. 5. Hysterectomy at age 22. 6. Oophorectomy, unilateral, in 1999. 7. Oophorectomy at age 39. 8. Appendectomy. HOME MEDICATIONS: 1. Warfarin 2.5 mg at bedtime. 2. Triamterene/hydrochlorothiazide 37.5-25 mg at bedtime. 3. Stiolto Respimat 2.5-2.5 mcg per actuator, 1 daily. 4. Potassium chloride 10 mEq at bedtime. 5. Nitroglycerin as needed. 6. Toprol XL 50 mg at bedtime. 7. Lactobacillus 1 tablet b.i.d. 8. Lantus SoloStar 20 units at bedtime. 9. Gabapentin 300 mg at bedtime. 10. Flonase 50 mcg both nostrils daily. 12. Vitamin B12 injection 1000 mcg monthly. 13. Amiodarone 200 mg at bedtime. 14. Allopurinol 300 mg at bedtime. 15. Albuterol sulfate inhaler as needed. ALLERGIES: MULTIPLE ALLERGIES INCLUDING ASPIRIN, AZITHROMYCIN, DOXYCYCLINE, INFLUENZA VACCINES, MACROLIDES, PENICILLINS, ACTONEL, SALICYLATES, SULFA DRUGS, BENADRYL, LISINOPRIL, METFORMIN, REGLAN, EVISTA. FAMILY HISTORY: Father at age 72 brain aneurysm, mother at age 59 due to heart failure. One sister is due to heart failure and another sister who has chronic back problems. SOCIAL HISTORY: The patient lives in [place], [place]. She is . She has one child currently living. She is a homemaker. She is a former smoker, but quit 20 years previously. She does not and never has drank alcohol or abused illicit drugs. REVIEW OF SYSTEMS: CONSTITUTIONAL: Negative for any fevers, chills or unintentional weight loss. HEENT: Negative for sore throats, earaches, nasal congestion, vision changes. RESPIRATORY: Negative for coughing, wheezing, shortness of breath. CARDIOVASCULAR: Negative for chest pain, palpitations, tachycardia or syncopal episodes. She does have a history of atrial fibrillation on chronic Coumadin therapy. GASTROINTESTINAL: Negative for nausea, vomiting, diarrhea, constipation or abdominal pain. GENITOURINARY: Negative for dysuria, hematuria, polyuria. NEUROLOGIC: Negative for headaches, seizures, ataxia or focal motor deficits. HEMATOLOGIC: She does have some easy bruising secondary to Coumadin, but denies any unexplained bleeding or transfusion reactions. PHYSICAL EXAMINATION: VITAL SIGNS: Temperature 97. Pulse 68. Blood pressure 128/73. Respirations 16. Saturation 99% on 2 liters nasal cannula. GENERAL: The patient is resting comfortably and has good pain control. She did receive a block in the OR. HEENT: Tympanic membranes clear bilaterally. Oropharynx is pink, moist without any lesions. NECK: Supple, nontender with full range of motion. No jugular venous distention noted. RESPIRATORY: Lung sounds are clear to auscultation bilaterally without any rhonchi, wheezes or rales, slightly diminished towards the bases. CARDIOVASCULAR: Regular rate and rhythm without any appreciable murmurs, gallops, or rubs. ABDOMEN: Soft, nontender with hypoactive bowel sounds. EXTREMITIES: Right hip has a surgical dressing in place which is clean and dry. Distal pulses are strong. Capillary refill brisk. NEUROLOGIC: The patient is alert and oriented times three. LABORATORY: INR 1.09. Urinalysis showed trace leukocyte esterase with 3 to 5 WBCs, moderate amount of mucus, 1+ bacteria, 3+ amorphus, 1 to 3 epithelials. Postoperative hemoglobin and hematocrit pending. RADIOLOGY: No additional radiographic studies for review. ASSESSMENT: 1. Postoperative day 0 for elective right total hip arthroplasty performed by Dr. Yoandy Marrero. 2. Atrial fibrillation on chronic Coumadin therapy with sinus rhythm on admission with Coumadin being held multiple days preoperatively with nontherapeutic INR. 3. History of congestive heart failure with last echocardiogram in 2007 showing ejection fraction of 55% with diastolic dysfunction, no current signs of exacerbation. 4. Advanced coronary artery disease. 5. Hyperlipidemia. 6. Hypertension. 7. Chronic obstructive pulmonary disease in a previous smoker, not showing any signs of exacerbation. 8. Sleep apnea, not currently utilizing CPAP. 9. Diabetes mellitus, type 2, on diet and insulin therapy. 10. History of previous diverticulosis with diverticulitis that required previous colon resection in 2010. 11. Gout. PLAN: We will continue to follow the patient as she progresses through her postoperative phase. In regards to her warfarin and INR, we will give her a 5 mg dose tonight and recheck INR daily until we get her therapeutic. In the meantime we will use Lovenox per protocol for hip replacement. She will need continued PT/INR and if she goes home before she is therapeutic, certainly will need close monitoring and followup with Dr. Ramsay who is her primary care physician. She will have physical therapy evaluation and treatment. She will be on a diabetic diet on as tolerated. She will be on insulin sliding scale per protocol. I did start her long-acting insulin which formerly was Lantus, but we have Levemir which I did start back about half a dose at night given she is probably not having much oral intake at this point, but will need to be readjusted prior to going home. I anticipate length of stay to be at least 2 to 3 days. They have not yet discussed what they want to do for outpatient management. They do reside in [place], [place]. Until the patient can transition to outpatient management, we will continue to monitor and treat as needed. #[id number] [facility]
[2020-04-15] MEDS ORDERED: METOPROLOL SUCCINATE XL 50 MG TAB ONE (19:21)
[2020-04-15] MEDS ORDERED: DOCUSATE CALCIUM 240 MG CAP ONE (19:21)
[2020-04-15] MEDS ORDERED: ALLOPURINOL 300 MG TAB PO ONE (19:21)
[2020-04-15] MEDS ORDERED: ENOXAPARIN SODIUM 30 MG/0.3 ML SYG SUBCU ONE (19:22)
[2020-04-15] MEDS ORDERED: GABAPENTIN 300 MG CAP ONE (19:22)
[2020-04-15] MEDS ORDERED: POTASSIUM CHLORIDE 10 MEQ TAB PO ONE (19:22)
[2020-04-15] MEDS ORDERED: AMIODARONE HCL 200 MG TAB ONE (19:22)
[2020-04-15] MEDS ORDERED: WARFARIN SODIUM 5 MG TAB ONE (19:22)
[2020-04-15] MEDS ORDERED: LACTOBACILLUS 1 TAB ONE (19:23)
[2020-04-15] MEDS: ceFAZolin SODIUM 2 GM in SODIUM CHLORIDE 0.9% 100ML 100 ML IVPB SCH (19:41)
[2020-04-15] MEDS: LACTOBACILLUS 1 TAB PO SCH (20:58)
[2020-04-15] MEDS: GABAPENTIN 300 MG CAP PO SCH (21:00)
[2020-04-15] MEDS: POTASSIUM CHLORIDE 10 MEQ TAB PO SCH (21:00)
[2020-04-15] MEDS ORDERED: WARFARIN SODIUM 5 MG TAB PO ONE (21:00)
[2020-04-15] MEDS ORDERED: HCTZ 25 MG/TRIAMTERENE 37.5 MG 1 EA CAP PO SCH (21:00)
[2020-04-15] MEDS: ALLOPURINOL 300 MG TAB PO SCH (21:01)
[2020-04-15] MEDS: AMIODARONE HCL 200 MG TAB PO SCH (21:01)
[2020-04-15] MEDS: METOPROLOL SUCCINATE XL 50 MG TAB PO SCH (21:02)
[2020-04-15] MEDS: DOCUSATE CALCIUM 240 MG CAP PO SCH (21:02)
[2020-04-15] MEDS: ENOXAPARIN SODIUM 30 MG/0.3 ML SYG SUBCU SCH (22:52)
[2020-04-16] MEDS ORDERED: VANCOMYCIN HCL INJ 1,000 MG in SODIUM CHLORIDE 0.9% 250ML 250 ML IVPB SCH (01:00)
[2020-04-16] MEDS: MAGNESIUM OXIDE 400 MG TAB PO SCH (08:22)
[2020-04-16] MEDS: INSULIN LISPRO 100 UNITS/ML PEN SUBCU SCH ×4 (08:22→21:00)
[2020-04-16] MEDS: ceFAZolin SODIUM 2 GM in SODIUM CHLORIDE 0.9% 100ML 100 ML IVPB SCH (08:23)
[2020-04-16] MEDS: CELECOXIB 100 MG CAP PO SCH ×2 (08:23→16:39)
[2020-04-16] MEDS: NON-FORMULARY MEDICATION 1 EA MIS (Tiotropium Bromide-Olodaterol [Stiolto Respimat 2.5-2.5 IN SCH (08:23)
[2020-04-16] MEDS: LACTOBACILLUS 1 TAB PO SCH ×2 (08:23→21:00)
--- NOTE | 2020-04-16 10:00 | PN ---
DATE: 04/16/20 SUBJECTIVE: Silvina is subjectively doing well. She has no significant pain. OBJECTIVE: Afebrile. Vital signs stable. Dressing is clean, dry and intact. ASSESSMENT: Status post total hip arthroplasty. PLAN: The plan is to begin partial weightbearing today. #[id number] [facility]
--- NOTE | 2020-04-16 10:11 | OP ---
DATE OF PROCEDURE: 04/15/20 PREOPERATIVE DIAGNOSIS: 1. Osteoarthritis of the right hip. POSTOPERATIVE DIAGNOSIS: 1. Osteoarthritis of the right hip. PROCEDURE: 1. Total hip arthroplasty. SURGEON: Yoandy Marrero MD. OIL REFINER: Deion Barajas CST, SA-C. ANESTHESIA: General anesthesia. COMPLICATIONS: None. FINDINGS: Advanced arthritis of the hip. INDICATION: Ms. Ramsay has a history of severe pain of the hip. She was initially responsive to intraarticular injection, however, has failed to gain relief subsequent to that. Because of her ongoing symptoms and the severity of her pain, she requested operative intervention. After discussing the risks, benefits and alternatives to that, the patient has given informed consent for total hip arthroplasty. PROCEDURE: The patient was brought to the Operating Room and placed in supine position. General anesthesia was induced and the patient was turned into the lateral decubitus position. The leg and hemipelvis were then sterilely prepped and draped. Following prepping and draping, an incision was made in line with the greater trochanter. Dissection was carried down to the iliotibial band, which was split along the course of its fibers. Following that, the anterior one-third of the abductor musculature was identified and elevated. The hip was dislocated and primary femoral neck cut was made. Following primary femoral neck cut, the acetabulum was exposed and the labrum was fully removed. Sequential reaming was undertaken and a elba bleeding bed was achieved with a size 47 reamer. A size 48 cup was impacted in place and 3 screws were used to augment the fixation. Following that, attention was focused on the femur where sequential broaching was used to a size 5 femoral stem. The femoral stem was left in place and the hip was reduced with a trial head. It was taken through a range of motion and found to be stable without impending dislocation and no impingement. The hip was then dislocated and trial was removed. The wound was thoroughly irrigated and the final component was impacted. Following that, the hip was reduced. It was again trialed with regards to range of motion and stability. The wound was very thoroughly irrigated and the abductor musculature was reapproximated. Follow reapproximation of the musculature, the iliotibial band was closed. The skin was closed with a combination of running and interrupted subcuticular stitches. Sterile dressings were placed. The patient was awoken from anesthesia and taken to Recovery. POSTOPERATIVE PLAN: The patient will be partial weightbearing on postoperative day 1. COMPONENTS: Pernell Accolade II stem and Tritanium cup, size 48. The stem was size 5. #[id number] [facility]
--- NOTE | 2020-04-16 10:46 | PN ---
SUPERVISING PHYSICIAN: Dave Ramirez MD DATE: 04/16/20 SUBJECTIVE: The patient is sitting on the side of the bed. Physical therapy is in her room. She denies shortness of breath, nausea, vomiting, diarrhea. She is having a difficult time even standing with assistance due to weakness. The patient has information on going to [facility] upon discharge. Adry Bishop, MELTER OPERATOR, has talked to her about her discharge planning, especially due to her weakness. OBJECTIVE: VITAL SIGNS: Temperature 98.4, heart rate 69, blood pressure 104/68, respiratory rate 16, oxygen saturation 96% on 2 liters nasal cannula. RESPIRATORY: Essentially clear to auscultation bilaterally. CARDIAC: Regular rate and rhythm. GI: Abdomen is soft, nondistended, non-tender. Bowel sounds are positive. EXTREMITIES: There is a dressing to her right lateral hip that is dry and intact. Bilateral pedal pulses are palpable at +2. NEUROLOGICAL: Awake, alert, and oriented x3. LABORATORY: Hemoglobin 10.8, hematocrit 32.6. All other labs and films have been reviewed via the EMR. ASSESSMENT: 1. Postoperative day #1 for elective right total hip arthroplasty performed by Dr. Yoandy Marrero, orthopedic surgeon. 2. Atrial fibrillation on chronic Coumadin therapy with sinus rhythm on admission with Coumadin being held multiple days preoperatively with nontherapeutic INR. 3. History of congestive heart failure with last echocardiogram in 2007 showing ejection fraction of 55% with diastolic dysfunction, no current signs of exacerbation. 4. Advanced coronary artery disease. 5. Hyperlipidemia. 6. Hypertension. 7. Chronic obstructive pulmonary disease in a previous smoker, not showing any signs of exacerbation. 8. Sleep apnea, not currently utilizing CPAP. 9. Diabetes mellitus, type 2, on diet and insulin therapy. 10. History of previous diverticulosis with diverticulitis that required previous colon resection in 2010. 11. Gout. PLAN: We will continue present supportive care. Orthopedic issues will be per Dr. Yoandy Marrero, orthopedic surgeon. She will continue with her physical therapy for strengthening and conditioning. At this point, she may go to [facility] at discharge due to her extreme weakness but the patient and her have talked to Dr. Marrero about it. Otherwise, we have encouraged good pulmonary hygiene and will continue to monitor closely and follow as needed. #[id number] [facility]
[2020-04-16] MEDS: ENOXAPARIN SODIUM 30 MG/0.3 ML SYG SUBCU SCH ×2 (11:40→22:55)
[2020-04-16] MEDS: CYCLOBENZAPRINE HCL 10 MG TAB PO PRN (13:31)
[2020-04-16] MEDS: HYDROcodone 5MG/APAP 325MG 1 EA TAB PO PRN (13:31)
[2020-04-16] MEDS ORDERED: WARFARIN SODIUM 2.5 MG TAB ONE (19:20)
[2020-04-16] MEDS: POTASSIUM CHLORIDE 10 MEQ TAB PO SCH (20:58)
[2020-04-16] MEDS: ALLOPURINOL 300 MG TAB PO SCH (20:59)
[2020-04-16] MEDS: AMIODARONE HCL 200 MG TAB PO SCH (20:59)
[2020-04-16] MEDS: WARFARIN SODIUM 2.5 MG TAB PO SCH (21:00)
[2020-04-16] MEDS: GABAPENTIN 300 MG CAP PO SCH (21:03)
[2020-04-16] MEDS: DOCUSATE CALCIUM 240 MG CAP PO SCH (21:03)
[2020-04-16] MEDS ORDERED: METOPROLOL SUCCINATE XL 25 MG TAB PO ONE (21:18)
[2020-04-16] MEDS: METOPROLOL SUCCINATE XL 50 MG TAB PO SCH (21:18)
[2020-04-17] MEDS: CYCLOBENZAPRINE HCL 10 MG TAB PO PRN ×2 (00:31→09:23)
[2020-04-17] MEDS: HYDROcodone 5MG/APAP 325MG 1 EA TAB PO PRN ×4 (05:25→22:49)
[2020-04-17] MEDS: CELECOXIB 100 MG CAP PO SCH ×2 (07:29→16:58)
[2020-04-17] MEDS: INSULIN LISPRO 100 UNITS/ML PEN SUBCU SCH ×4 (07:29→20:51)
[2020-04-17] MEDS: SULFA/TRIMETH 800/160 (DS) TAB 1 EA TAB PO SCH ×2 (09:23→20:50)
[2020-04-17] MEDS: LACTOBACILLUS 1 TAB PO SCH ×2 (09:23→20:50)
[2020-04-17] MEDS: MAGNESIUM OXIDE 400 MG TAB PO SCH (09:23)
[2020-04-17] MEDS: SODIUM CHLORIDE 0.9% (FLUSH) 10 ML SYG IV SCH ×2 (09:24→20:51)
[2020-04-17] MEDS: NON-FORMULARY MEDICATION 1 EA MIS (Tiotropium Bromide-Olodaterol [Stiolto Respimat 2.5-2.5 IN SCH (09:24)
[2020-04-17] MEDS: NON-FORMULARY MEDICATION 1 EA MIS PO SCH (09:25)
[2020-04-17] MEDS: ENOXAPARIN SODIUM 30 MG/0.3 ML SYG SUBCU SCH ×2 (12:06→23:22)
--- NOTE | 2020-04-17 14:21 | PN ---
SUPERVISING PHYSICIAN: Dave Ramirez MD DATE: 04/17/20 SUBJECTIVE: The patient is sitting up in her chair. She had a much easier time transferring from bed to chair today than yesterday. She does feel stronger. She and her discussed with Dr. Marrero this morning that she would like to go to [facility], so that referral has been sent. Hopefully she can be discharged to their facility tomorrow. Otherwise, no complaints of shortness of breath, nausea or vomiting. She does have a scratchy throat. OBJECTIVE: VITAL SIGNS: Temperature 98.0, heart rate 70, blood pressure 120/73, respiratory rate 16, oxygen saturation 96% on 2 liters nasal cannula. RESPIRATORY: Essentially clear to auscultation bilaterally. CARDIAC: Regular rate and rhythm. GASTROINTESTINAL: Abdomen is soft, nondistended, nontender. Bowel sounds are positive. EXTREMITIES: She has a dressing to her right lateral hip that is dry and intact. Bilateral pedal pulses are palpable at +2. NEUROLOGICAL: Awake, alert, and oriented x3. LABORATORY: There are no labs or films to report at this time. ASSESSMENT: 1. Postoperative day #2 for elective right total hip arthroplasty performed by Dr. Yoandy Marrero, orthopedic surgeon. 2. Atrial fibrillation on chronic Coumadin therapy with sinus rhythm on admission with Coumadin being held multiple days preoperatively with nontherapeutic INR. 3. History of congestive heart failure with last echocardiogram in 2007 showing ejection fraction of 55% with diastolic dysfunction, no current signs of exacerbation. 4. Advanced coronary artery disease. 5. Hyperlipidemia. 6. Hypertension. 7. Chronic obstructive pulmonary disease in a previous smoker, not showing any signs of exacerbation. 8. Sleep apnea, not currently utilizing CPAP. 9. Diabetes mellitus, type 2, on diet and insulin therapy. 10. History of previous diverticulosis with diverticulitis that required previous colon resection in 2010. 11. Gout. PLAN: We will continue present supportive care. Orthopedic issues will be per Dr. Yoandy Marrero, orthopedic surgeon. She will continue with her physical therapy for strengthening and conditioning. Hopefully, she will be accepted to [facility] and she can transfer there tomorrow for further rehabilitation. She is moving somewhat better, so hopefully she can be discharged tomorrow. I have ordered some Cepacol lozenges for the bedside. We will continue to monitor the patient closely and follow as needed. [facility][id number] [facility]
[2020-04-17] MEDS: AMIODARONE HCL 200 MG TAB PO SCH (20:50)
[2020-04-17] MEDS: POTASSIUM CHLORIDE 10 MEQ TAB PO SCH (20:50)
[2020-04-17] MEDS: ALLOPURINOL 300 MG TAB PO SCH (20:50)
[2020-04-17] MEDS: GABAPENTIN 300 MG CAP PO SCH (20:50)
[2020-04-17] MEDS: METOPROLOL SUCCINATE XL 50 MG TAB PO SCH (20:50)
[2020-04-17] MEDS: DOCUSATE CALCIUM 240 MG CAP PO SCH (20:50)
[2020-04-17] MEDS: WARFARIN SODIUM 2.5 MG TAB PO SCH (20:50)
[2020-04-18] MEDS: MAGNESIUM OXIDE 400 MG TAB PO SCH (07:50)
[2020-04-18] MEDS: NON-FORMULARY MEDICATION 1 EA MIS PO SCH (07:50)
[2020-04-18] MEDS: SULFA/TRIMETH 800/160 (DS) TAB 1 EA TAB PO SCH (07:50)
[2020-04-18] MEDS: ONDANSETRON INJ 4 MG/2 ML VIAL IV PRN (07:50)
[2020-04-18] MEDS: CELECOXIB 100 MG CAP PO SCH (07:50)
[2020-04-18] MEDS: HYDROcodone 5MG/APAP 325MG 1 EA TAB PO PRN (07:50)
[2020-04-18] MEDS: INSULIN LISPRO 100 UNITS/ML PEN SUBCU SCH (08:18)
[2020-04-18 09:04] VITALS: O2SAT 96
[2020-04-18] MEDS: LACTOBACILLUS 1 TAB PO SCH (09:50)
[2020-04-18 10:31] VITALS: BP 139/71; TEMP 98.9
[2020-04-18] MEDS ORDERED: BISACODYL SUPPOSITORY 10 MG PR ONE (21:00)
[2020-04-18] MEDS ORDERED: MAGNESIUM HYDROXIDE 30 ML UD PO ONE (21:00)
--- NOTE | 2020-04-20 15:00 | DS ---
SUPERVISING PHYSICIAN: Dave Ramirez MD ADMISSION DIAGNOSES: 1. Postoperative day 0 for elective right total hip arthroplasty performed by Dr. Yoandy Marrero. 2. Atrial fibrillation on chronic Coumadin therapy with sinus rhythm on admission with Coumadin being held multiple days preoperatively with nontherapeutic INR. 3. History of congestive heart failure with last echocardiogram in 2007 showing ejection fraction of 55% with diastolic dysfunction, no current signs of exacerbation. 4. Advanced coronary artery disease. 5. Hyperlipidemia. 6. Hypertension. 7. Chronic obstructive pulmonary disease in a previous smoker, not showing any signs of exacerbation. 8. Sleep apnea, not currently utilizing CPAP. 9. Diabetes mellitus, type 2, on diet and insulin therapy. 10. History of previous diverticulosis with diverticulitis that required previous colon resection in 2010. 11. Gout. DISCHARGE DIAGNOSES: 1. Postoperative day #3 for elective right total hip arthroplasty performed by Dr. Yoandy Marrero. 2. Atrial fibrillation on chronic Coumadin therapy with sinus rhythm on admission with Coumadin being held multiple days preoperatively with nontherapeutic INR. 3. History of congestive heart failure with last echocardiogram in 2007 showing ejection fraction of 55% with diastolic dysfunction, no current signs of exacerbation. 4. Advanced coronary artery disease. 5. Hyperlipidemia. 6. Hypertension. 7. Chronic obstructive pulmonary disease in a previous smoker, not showing any signs of exacerbation. 8. Sleep apnea, not currently utilizing CPAP. 9. Diabetes mellitus, type 2, on diet and insulin therapy. 10. History of previous diverticulosis with diverticulitis that required previous colon resection in 2010. 11. Gout. REASON FOR HOSPITALIZATION: Ms. Ramsay is an 79-year-old female patient who was admitted for elective right total hip arthroplasty. She tried multiple procedures as an outpatient and conservative measures for treatment of underlying right hip pain secondary to osteoarthritis. She had no intraoperative complications and was seen in the immediate postoperative state. She was in stable condition at time of consultation. LABORATORY: Postoperative hemoglobin 7.7, hematocrit 28.9. Coagulation studies: INR was up to 1.21. Chemistries: Blood sugars ranged between 103 and 123. Urinalysis showed 1+ bacteria after discharge with the [facility]. Toxicology: Urine drug screen was negative. HOSPITAL COURSE: Ms. Ramsay was admitted for right total hip arthroplasty electively. She had no intraoperative complications. She was held off her Warfarin prior to surgery and on the day of surgery, postoperative was started back and supplement was Lovenox. She had no complications intraoperatively or postoperatively. She was participating in physical therapy but it was felt she would benefit greatly from continued rehabilitation as an inpatient to [facility]. She was there on her date of discharge to continue with physical therapy to [facility]. PLAN: Ms. Ramsay was discharged and transferred to [facility] facility in [place], [place]. She is to followup with Dr. Marrero as scheduled. She is to resume her home medications as prior to hospitalization including her anticoagulation as well as continue with Lovenox until she becomes therapeutic in regard to her INR after discharge. She was transferred via ground ambulance. Condition on transfer was stable and improved. DISPOSITION: The patient was transferred to [facility] in [place], [place]. #[id number] [facility]
== END 2020-04-18 09:30 | DRG 470 ==
LOC: AMB 05:44 → MS 10:50
PROVIDERS: ADMIT Orthopaedic Surgery; ATTEND Nurse Practitioner Family
PROC: 0SR902A Replacement of Right Hip Joint with Metal on Polyethylene Synthetic Substitute, Uncemented, Open Approach (ICD-10-PCS; principal; 2020-04-15 06:52)
DX: M16.11 Unilateral primary osteoarthritis, right hip (principal); I50.32 Chronic diastolic (congestive) heart failure; I48.0 Paroxysmal atrial fibrillation; I25.10 Atherosclerotic heart disease of native coronary artery without angina pectoris; E78.5 Hyperlipidemia, unspecified; I11.0 Hypertensive heart disease with heart failure; J44.9 Chronic obstructive pulmonary disease, unspecified; G47.30 Sleep apnea, unspecified; E11.9 Type 2 diabetes mellitus without complications; M10.9 Gout, unspecified; E89.0 Postprocedural hypothyroidism; Z88.6 Allergy status to analgesic agent; Z88.1 Allergy status to other antibiotic agents; Z88.3 Allergy status to other anti-infective agents; Z88.7 Allergy status to serum and vaccine; Z88.0 Allergy status to penicillin; Z88.2 Allergy status to sulfonamides; Z88.8 Allergy status to other drugs, medicaments and biological substances; Z79.01 Long term (current) use of anticoagulants; Z90.49 Acquired absence of other specified parts of digestive tract; Z79.4 Long term (current) use of insulin; Z79.899 Other long term (current) drug therapy; Z87.891 Personal history of nicotine dependence

== ENCOUNTER → 2020-05-26 | Outpatient (CLI) | payer MEDICARE, OTHER | LOC: BFHH 14:48 | PROVIDERS: ATTEND Family Medicine | DX: E11.9 Type 2 diabetes mellitus without complications (principal); I48.0 Paroxysmal atrial fibrillation; I11.0 Hypertensive heart disease with heart failure; I50.9 Heart failure, unspecified; Z47.1 Aftercare following joint replacement surgery ==

== ENCOUNTER → 2020-07-25 | Outpatient (CLI) | payer MEDICARE, OTHER ==
--- NOTE | 2020-07-26 07:11 | RAD ---
EXAM DESCRIPTION: Hip,Left 2 Views CLINICAL HISTORY: 79 years Female, PAIN IN LEFT HIP COMPARISON: May 03, 2019 Findings: 2 views/radiographs Location: Left hip/pelvis No acute fracture or dislocation. Moderate left hip osteoarthritis with acetabular over coverage. Soft tissues are unremarkable. Osteopenia. IMPRESSION: No evidence of acute process in the left hip. Electronically signed by: Don Cross MD 07/26/2020 6:42 AM CDT
== END ==
LOC: RAD 09:05
PROVIDERS: ATTEND Orthopaedic Surgery
DX: M25.552 Pain in left hip (principal)

== ENCOUNTER → 2020-10-07 | Outpatient (CLI) | payer MEDICARE, OTHER ==
--- NOTE | 2020-10-07 13:26 | CT ---
EXAM DESCRIPTION: CTA Chest CLINICAL HISTORY: 79 years, Female, PRECORDIAL PAIN COMPARISON: February 05, 2019 and May 14, 2019 TECHNIQUE: CT pulmonary angiography is performed with thin-section multi detector technique during rapid bolus administration of IV contrast media. Multiplanar reformatted images are reviewed along with source images and maximum intensity projection images which were created on a separate dedicated workstation and are stored in the patient's medical record. FINDINGS: Stable 12 mm subsolid nodule left lower lobe. No other parenchymal abnormalities. Excellent opacification pulmonary arteries. No pulmonary emboli Mild cardiomegaly. No effusion. Large lesion left lobe the liver 4.6 cm. Multiple retroperitoneal masses in the upper abdomen. There is adrenal involvement with a 5.7 x 3.5 cm left adrenal mass and a second likely adrenal mass measuring 2 cm in size with nodes around the celiac axis measuring 2 cm in size. Suspect multiple splenic lesions. IMPRESSION: 1. 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 Recommend CT abdomen and pelvis with contrast. 2. Stable subsolid left lower lobe 12 mm nodule requires annual CT for 5 years ending on conventional findings and diagnosis related to the upper abdomen This exam was performed according to our departmental dose-optimization program, which includes automated exposure control, adjustment of the mA and/or kV according to patient size and/or use of iterative reconstruction technique. Electronically signed by: Grzegorz Dumont MD 10/07/2020 1:25 PM [facility]
== END ==
LOC: CT 12:18
PROVIDERS: ATTEND Family Medicine
DX: C79.70 Secondary malignant neoplasm of unspecified adrenal gland (principal); C78.6 Secondary malignant neoplasm of retroperitoneum and peritoneum; R91.1 Solitary pulmonary nodule; R07.2 Precordial pain; R06.02 Shortness of breath

== ENCOUNTER → 2020-10-13 | Outpatient (CLI) | payer MEDICARE, OTHER ==
--- NOTE | 2020-10-13 12:26 | CT ---
EXAM DESCRIPTION: Abdomen/Pelvis w/wo Contrast CLINICAL HISTORY: 79 years Female, ABN CT CHEST TECHNIQUE: This exam was performed according to our departmental dose-optimization program, which includes automated exposure control, adjustment of the mA and/or kV according to patient size and/or use of iterative reconstruction technique. COMPARISON: 10/07/2020, May 14, 2019 FINDINGS: Visualized lung bases are grossly unremarkable. Scattered benign hepatic cysts. There is an infiltrative left hepatic lobe lesion measuring 6.2 cm. The portal vein is patent. Cholecystectomy. Cirrhotic liver morphology. The spleen, pancreas and right adrenal gland are unremarkable. Left adrenal gland mass measuring 5.4 cm. Normal renal contours. Symmetric renal parenchymal enhancement. No hydronephrosis. Unremarkable bladder.. Surgical suture at the sigmoid colon. Scattered colonic diverticula without focal inflammatory change. No evidence of bowel obstruction. No findings to suggest appendicitis. No focal fluid collection. No free air. Normal caliber abdominal aorta. Moderate diffuse atherosclerotic disease. Upper abdominal/gastrohepatic necrotic adenopathy. Reference gastrohepatic lymph node measures 2.1 cm. Reference left periaortic lymph node measures 2.2 cm. No acute or suspicious osseous abnormality. Scattered degenerative changes present. Right hip arthroplasty. IMPRESSION: 1. Infiltrative left hepatic lobe lesion measuring 6.2 cm worrisome for primary versus metastatic disease. 2. Left adrenal gland mass, compatible with metastatic disease. 3. Upper abdominal/gastrohepatic adenopathy, worrisome for metastatic disease. Electronically signed by: Don Cross MD 10/13/2020 12:25 PM [facility]
== END ==
LOC: CT 10:31
PROVIDERS: ATTEND Family Medicine
DX: Z01.812 Encounter for preprocedural laboratory examination (principal); K76.9 Liver disease, unspecified; E27.9 Disorder of adrenal gland, unspecified; R59.0 Localized enlarged lymph nodes; R07.2 Precordial pain; R93.5 Abnormal findings on diagnostic imaging of other abdominal regions, including retroperitoneum

== ENCOUNTER → 2020-10-15 | Outpatient (CLI) | payer MEDICARE, OTHER | LOC: LAB.O 10:26 | PROVIDERS: ATTEND Family Medicine | DX: C74.92 Malignant neoplasm of unspecified part of left adrenal gland (principal); R93.5 Abnormal findings on diagnostic imaging of other abdominal regions, including retroperitoneum ==

== ENCOUNTER → 2020-10-20 | Outpatient (CLI) | payer MEDICARE, OTHER ==
--- NOTE | 2020-10-21 16:01 | CT ---
EXAM DESCRIPTION: Liver Biopsy: Computed Tomography. CLINICAL HISTORY: 79 years Female LIVER MASS. Masses also in the peritoneum. COMPARISON: CTA chest October 07. CT scan abdomen and pelvis with contrast October 13. TECHNIQUE: Patient placed supine on CT table, feet toward the gantry. Hypodense mass in the lateral segment left hepatic lobe, localized on helical axial images 2.5 x 2.5 mm. Table position recorded and repeat images with wire localizer on the anterior mid abdominal wall. Skin marked and prepped with sterile solution, sterile drape and 1% Xylocaine local anesthetic, with 25-gauge 1.5 gauge needle. Repeat imaging to confirm position of skin needle. Skin alfonso with #11 scalpel. 17-gauge 13.5 cm Bard trocar and cannula introduce 5 cm in a posterior and lateral direction, and images confirmed good position relative to the mass. Trocar removed and Bard 18-gauge by 15 cm 2 stage biopsy gun core needle, with 1.5 cm notch, introduced into the mass. 3, almost complete core samples were obtained at different depths in the mass, and placed in formalin. Follow-up spiral axial 5 mm thickness images through the abdomen after the procedure. Coronal and sagittal 2.0 mm reconstructions. Complications: Patient tolerated the procedure well with no immediate complications. . Total Exam DLP: 1508 mGy-cm. This exam was performed according to our departmental CT dose-optimization program which includes automated exposure control, adjustment of the mA and/or kV according to patient size and/or use of iterative reconstruction technique; to reduce radiation dose to as low as reasonably achievable (ALARA). FINDINGS: Mass is again demonstrated in the lateral segment of the left hepatic lobe extending through the anterior capsule and abutting the left hemidiaphragm. Dimensions are approximately 4.7 x 5.0 cm in the transverse plane and 6.1 cm craniocaudal axis. Minimal calcification in the inferior medial margin of the mass. The medial inferior margin of the mass was biopsied. Following the examination, minimal air is visualized in the anterior subcapsular aspect of the mass. No free air. No ascites. Minimal lobulation/scalloping is noted in the liver capsule and the left lobe appears enlarged (10.7 cm craniocaudal axis) relative to the right lobe, which is 13 cm craniocaudal axis. Several cysts are noted in the right lobe, as well as the medial segment of the left lobe. Heterogeneous mass measuring 6 x 3.8 cm in the transverse plane and 5.5 cm in the craniocaudal axis posterior to the left greater than abutting the posteromedial spleen and pancreas. 2.1 x 2.8 cm mass with irregular margins and 2.4 x 2.4 cm mass with irregular margins adjacent to each other abutting the posterior capsule of the lateral segment superior to the gastric pylorus. Similar density mass abutting the posterior superior gastric fundus. Irregular mass in the left adrenal gland measuring 2.8 x 2.0 cm abutting the gastric fundus in the suprarenal mass on the left. 2 mm stone in the upper collecting system of the left kidney. Bilateral kidneys appear to have cortical atrophy. Spleen is negative, splenules medial to the inferior segment. No small bowel obstruction or air-fluid levels. Minimal fecal matter in the colon with no air fluid levels. Moderate atherosclerotic calcifications in the abdominal aorta. Spondylosis in the included thoracic and lumbar spine. Pleural-parenchymal scarring in the bilateral lung bases. No effusion.. IMPRESSION: Successful, CT-guided fine needle biopsy of mass in the lateral segment of the left hepatic lobe. No significant amount of free air and no ascites. Cystlike regions in the other segments of the liver. Minimal lobulation/scalloping of the liver capsule. Additional masses also noted in the peritoneal cavity, and left adrenal gland. Electronically signed by: Deion Mathews MD 10/21/2020 4:00 PM [employer]
== END ==
LOC: CT 07:49
PROVIDERS: ATTEND Surgery
DX: C22.9 Malignant neoplasm of liver, not specified as primary or secondary (principal)

== ENCOUNTER → 2020-11-04 | Outpatient (CLI) | payer MEDICARE, OTHER ==
--- NOTE | 2020-11-05 08:26 | CT ---
EXAM DESCRIPTION: Chest w/Contrast (accession [id number]), Abdomen/Pelvis w/Contrast (accession [id number]) CLINICAL HISTORY: 80 years Female, LIVER CA COMPARISON: CT liver biopsy 10/20/2020. CT abdomen pelvis 10/13/2020. CTA chest 10/07/2020. TECHNIQUE: CT images of the chest, abdomen, and pelvis with IV contrast. Multiplanar reformations provided. This exam was performed according to our departmental dose-optimization program, which includes automated exposure control, adjustment of the mA and/or kV according to patient size and/or use of iterative reconstruction technique. CT CHEST FINDINGS: Heart and mediastinum: Enlarged heart. No pericardial effusion. Unremarkable esophagus. Moderate atherosclerosis. No mediastinal or hilar adenopathy. Thyroid Gland: Heterogeneous left thyroid gland with hypodense nodules measuring 7 mm. No dedicated imaging follow-up are clear. Lungs: Emphysema bilaterally. Mixed solid and groundglass opacity in the left lower lobe measuring 15 mm. Additional less than 3 mm nodular densities present in the inferior anterior right middle lobe. Airways: Normal. Pleura: Normal. Musculoskeletal and Soft Tissues: No acute fracture or aggressive appearing osseous lesion. Soft tissues unremarkable. CT ABDOMEN/PELVIS FINDINGS: Solid Organs: Left hepatic mass measuring up to 5.5 cm maximal transverse dimension, previously 4.9 cm. Additional hypodense lesions scattered throughout the right and left hepatic lobes. Nodular contour of the liver. Hypertrophied left hepatic an caudate lobes. Unremarkable spleen, pancreas, right adrenal gland. Gallbladder surgically absent without biliary ductal dilatation. Heterogeneous mass centered in the left adrenal gland measures 6.4 x 4.3 x 7.3 cm, previously 6.1 x 3.6 x 5.8 cm. Additional heterogeneous masses centered in the proximal stomach and gastrohepatic region measuring up to 3.0 cm. Kidneys are unremarkable. GI tract: Unremarkable decompressed stomach. No small bowel obstruction. Previous partial left hemicolectomy. Vascular: Moderate atherosclerosis. Musculoskeletal and soft tissues: No acute fracture or aggressive appearing osseous lesion. Previous right hip arthroplasty. Unremarkable soft tissues. Urinary bladder: Normal. Uterus and adnexa: Uterus surgically absent. Other: Enlarged right para-aortic lymph node measuring 19 mm, previously 12 mm. Small moderate free fluid within the pelvis. IMPRESSION: 1. Increased size of infiltrate left hepatic mass. Correlate biopsy results. 2. Increased size of left renal mass. 3. Increased size of upper abdominal, gastric artery, and periaortic adenopathy. 4. Stable left lower lobe nodule. Electronically signed by: Felipe Fernandez MD 11/05/2020 8:24 AM [facility]
== END ==
LOC: CT 11:20
PROVIDERS: ATTEND Internal Medicine Hematology & Oncology
DX: C22.9 Malignant neoplasm of liver, not specified as primary or secondary (principal); N28.9 Disorder of kidney and ureter, unspecified; R59.0 Localized enlarged lymph nodes; R91.1 Solitary pulmonary nodule

== ENCOUNTER 2020-11-15 12:31 | Emergency (ER) | payer MEDICARE, OTHER ==
[2020-11-15] MEDS ORDERED: ONDANSETRON INJ 4 MG/2 ML VIAL IV ONE (13:13)
[2020-11-15] MEDS ORDERED: SODIUM CHLORIDE 0.9% (FLUSH) 10 ML SYG IV PRN (13:13)
[2020-11-15] MEDS ORDERED: HYDROmorphone HCL INJ 2 MG/ML VIAL IV ONE (13:14)
--- NOTE | 2020-11-15 13:43 | RAD ---
EXAM DESCRIPTION: Chest,1 View 11/15/2020 1:41 PM [employer] CLINICAL HISTORY: 80 years, Female, chest pain COMPARISON: 02/09/2019 FINDINGS: Single view of the chest was obtained portable. Prior films were compared. The heart is in the upper normal size. The cardiomediastinal silhouette demonstrate to be unremarkable. The thoracic aorta demonstrate minimal intimal calcification. The pulmonary vasculature is normal in distribution. Costophrenic angles are sharp. No areas of consolidation or masses are seen. The rest of the soft tissue and bony structures demonstrate to be unremarkable. IMPRESSION: NO ACUTE CARDIOPULMONARY DISEASE SEEN. Electronically signed by: Joel Orozco MD 11/15/2020 1:41 PM [employer]
--- NOTE | 2020-11-15 14:23 | ED.PDOC ---
History of Present Illness - General Chief Complaint: General Stated Complaint: thoracic pain Time Seen by Provider: 11/15/20 13:12 Source: patient, RN notes reviewed, Vital Signs reviewed, family - Exam Limitations: no limitations - History of Present Illness Initial Comments: And is an 80-year-old white female who presents with complaints of back pain that radiates around and causing her left chest wall pain. This is been ongoing for a couple of days. It is worsening. Patient was diagnosed with liver cancer 6 weeks ago and is going to see her oncologist in the next couple of weeks. All the patient has a some Parsons at home patient complains of some mild shortness of breath. Nothing makes this pain better. It is worse with movement. It is sharp and stabbing in nature. Is severe in intensity. Timing/Duration: constant, getting worse Severity: moderate Improving Factors: nothing Worsening Factors: movement Associated Symptoms: chest pain, shortness of breath Allergies/Adverse Reactions: Allergies Aspirin Allergy (Verified 02/05/19 17:42) Azithromycin [From Z-Newton] Allergy (Verified 02/05/19 17:42) Doxycycline Allergy (Verified 02/05/19 17:42) Influenza Vaccines Allergy (Verified 02/05/19 17:42) Macrolides Allergy (Verified 02/05/19 17:42) Penicillins Allergy (Verified 02/05/19 17:42) Risedronate [From Actonel] Allergy (Verified 02/05/19 17:42) Salicylates Allergy (Verified 02/05/19 17:42) Sulfa Drugs Allergy (Verified 02/05/19 17:42) Diphenhydramine [From Benadryl] Adverse Reaction (Verified 02/05/19 17:42) Lisinopril Adverse Reaction (Verified 02/05/19 17:42) Metformin and Related Adverse Reaction (Verified 02/05/19 17:42) Metoclopramide [From Reglan] Adverse Reaction (Verified 02/05/19 17:42) Raloxifene [From Evista] Adverse Reaction (Verified 02/05/19 17:42) Home Medications: Ambulatory Orders Allopurinol [Zyloprim] 300 mg PO BEDTIME 01/09/15 Gabapentin [Neurontin] 300 mg PO BEDTIME 01/09/15 Insulin Glargine [Lantus Solostar] 20 unit SC BEDTIME 01/09/15 Triamterene & Hydrochlorothiaz [Triamterene/Hydrochloroth 37.5-25 mg] 37.5 tab PO BEDTIME 01/09/15 Warfarin Sodium 2.5 mg PO BEDTIME 01/09/15 Nitroglycerin 0.4 mg Tab [Nitrostat] 1 ea SL PRN PRN 07/14/15 Amiodarone HCl 200 mg PO BEDTIME 11/10/17 Lactobacillus [Acidophilus/l-Sporogenes] 1 tab PO BID #60 tab 02/09/19 Albuterol Sulfate Nebs 1 each .ROUTE ONCE 05/03/19 Cyanocobalamin Inj [Vitamin B-12 Inj] 1,000 mcg IM MONTHLY 05/03/19 Fluticasone Propionate (Nasal) [Flonase Allergy Relief] 50 mcg NA DAILY 05/03/19 Metoprolol Succinate [Toprol Xl] 50 mg PO BEDTIME 05/03/19 Potassium Chloride [Potassium Chloride ER] 10 meq PO BEDTIME 05/03/19 Tiotropium [place]-Olodaterol [Stiolto Respimat 2.5-2.5 Mcg/Act] 1 aer IN DAILY 05/03/19 Review of Systems - Review of Systems Constitutional: States: see HPI, malaise, weakness. Denies: chills, fever EENTM: States: no symptoms reported. Denies: eye pain, blurred vision, double vision Respiratory: States: no symptoms reported. Denies: cough, orthopnea, short of breath, stridor, wheezing Cardiology: States: no symptoms reported. Denies: chest pain, palpitations, syncope Gastrointestinal/Abdominal: States: no symptoms reported. Denies: abdominal pain, diarrhea, nausea, vomiting Genitourinary: States: no symptoms reported. Denies: dysuria, frequency Musculoskeletal: States: see HPI, back pain. Denies: joint pain, joint swelling, muscle pain, neck pain Skin: States: no symptoms reported. Denies: change in color, rash Neurological: States: see HPI, weakness. Denies: headache, numbness, tingling, tremors Endocrine: Denies: increased hunger, increased thirst, increased urine Hematologic/Lymphatic: States: no symptoms reported. Denies: blood clots, easy bleeding Past Medical History (General) - Patient Medical History Hx Seizures: No Hx Stroke: No Hx Dementia: No Hx Asthma: No Hx of COPD: Yes Hx Cardiac Disorders: Yes - hx of A-fib Hx Congestive Heart Failure: No Hx Pacemaker: No Hx Hypertension: Yes Hx Thyroid Disease: No Hx Diabetes: Yes Hx Gastroesophageal Reflux: No Hx Renal Disease: No Hx of HIV: No Hx MRSA: No - Vaccination History Hx Tetanus, Diphtheria Vaccination: Yes - greater than 5 yr Hx Influenza Vaccination: Yes Hx Pneumococcal Vaccination: Yes - Social History Hx Tobacco Use: Yes Hx Chewing Tobacco Use: No Hx Alcohol Use: No Hx Substance Use: No Hx Substance Use Treatment: No Hx Depression: No Hx Physical Abuse: No Hx Emotional Abuse: No Hx Suspected Abuse: No - Female History Patient : No Family Medical History - Family History Mother Living Status: Hx Cardiac Disease: Yes Father Living Status: Hx Cardiac Disease: Yes Hx Family;Other: of brain aneurysm Physical Exam - Physical Exam General Appearance: Alert, Anxious, Obvious distress, Well Developed, Well Groomed, Well Hydrated, Well Nourished Eye Exam: bilateral normal, bilateral abnormal EOM Ears, Nose, Throat: hearing grossly normal, normal ENT inspection, normal pharynx Neck: non-tender, full range of motion, supple Respiratory: chest non-tender, lungs clear, normal breath sounds, no respiratory distress, no accessory muscle use Cardiovascular/Chest: normal peripheral pulses, regular rate, rhythm, no edema, no gallop, no JVD, no murmur Peripheral Pulses: radial,right: 2+, radial,left: 2+ Gastrointestinal/Abdominal: normal bowel sounds, non tender, soft Back Exam: normal inspection, no CVA tenderness, no vertebral tenderness Extremity: normal range of motion, non-tender, normal inspection 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 Patient's pain is markedly improved after IV Dilaudid. Patient is resting comfortably. CT scan of the chest does not show dissection or PE. She has redemonstration of her metastatic liver cancer. Of note patient has an INR of 7.5. Plan on discharge home with follow- up with PCP on Tuesday. Patient already has Parsons at home. Will recommend patient not take her Coumadin tonight or tomorrow and see what her INR is on Tuesday prior to restarting her Coumadin. I discussed this plan of care with the patient and her and they voiced understanding and agreement with the plan of care. Jag Rosales M.D. #[id number] - Results/Orders Results/Orders: EKG performed on 15 November 2020 at 1255 hrs.: Atrial fibrillation with rapid ventricular response at 104 bpm, nonspecific ST and T wave changes, abnormal EKG. No comparison EKG available at this time. EXAM DESCRIPTION: Chest,1 View 11/15/2020 1:41 PM [employer] CLINICAL HISTORY: 80 years, Female, chest pain COMPARISON: 02/09/2019 FINDINGS: Single view of the chest was obtained portable. Prior films were compared. The heart is in the upper normal size. The cardiomediastinal silhouette demonstrate to be unremarkable. The thoracic aorta demonstrate minimal intimal calcification. The pulmonary vasculature is normal in distribution. Costophrenic angles are sharp. No areas of consolidation or masses are seen. The rest of the soft tissue and bony structures demonstrate to be unremarkable. IMPRESSION: NO ACUTE CARDIOPULMONARY DISEASE SEEN. Electronically signed by: Joel Orozco MD 11/15/2020 1:41 PM [employer]GENERATION OPERATOR 11/15/20 13:13 Telemetry ONCE Sodium Chloride 0.9% (Flush) [Saline Flush Syringe] 3 ml IV PRN PRN URINALYSIS Stat 11/15/20 13:15 EKG STAT 11/16/20 09:00 Pulse Ox Daily Laboratory Results - last 24 hr 11/15/20 13:37 WBC 6.2 RBC 3.60 L Hgb 10.8 L Hct 32.8 L MCV 91.1 MCH 29.9 MCHC 32.8 L RDW 16.4 H Plt Count 153 MPV 8.2 Absolute Neuts (auto) 4.70 Absolute Lymphs (auto) 0.70 L Absolute Monos (auto) 0.80 Absolute Eos (auto) 0.00 Absolute Basos (auto) 0.00 Neutrophils % 76.1 Lymphocytes % 10.8 L Monocytes % 12.6 H Eosinophils % 0.1 L Basophils % 0.4 PT 71.3 H* INR 7.27 H* PTT (SP) 72.6 H* Sodium 136 Potassium 4.0 Chloride 100 L Carbon Dioxide 24 Anion Gap 16.0 BUN 20 H Creatinine 1.10 BUN/Creatinine Ratio 18.2 Random Glucose 103 Serum Osmolality 274.8 L Calcium 8.8 Magnesium 1.9 Total Bilirubin 0.6 Direct Bilirubin 0.2 Indirect Bilirubin 0.4 AST 56 H ALT 25 Alkaline Phosphatase 62 Creatine Kinase 89 CK-MB (CK-2) 2.0 CK-MB (CK-2) % Not Reportable Troponin I < 0.02 B-Natriuretic Peptide 180.0 H Serum Total Protein 7.4 Albumin 3.4 EXAM: CTA chest with contrast CLINICAL INDICATION: Chest pain, shortness of breath COMPARISON: None. TECHNIQUE: CTA of the chest was performed using contiguous axial 2.5mm postcontrast sections through the chest including IV contrast with 3-D reconstructions. This exam was performed according to our departmental dose-optimization program, which includes automated exposure control, adjustment of the mA and/or kV according to patient size and/or use of iterative reconstruction technique. FINDINGS: There is no evidence of pulmonary embolism. There are no findings to suggest aortic dissection. There are no enlarged mediastinal or hilar lymph nodes. Visualized portions of the upper abdominal structures again demonstrate a low-density mass in the left lobe of the liver measuring 4.9 x 6.0 cm as well as a cyst in the right lobe of the liver measuring 1.6 x 1.5 cm. Also redemonstrated are multiple enlarged lymph nodes in the gastrohepatic ligament region and upper abdomen, partially visualized. A trace left pleural effusion is noted. Mild foci of atelectasis are seen in both lower lobes. Scattered foci of atelectasis are noted in the upper lobes as well. No pulmonary nodules or masses are seen. There are no suspicious bone lesions within the osseous structures. IMPRESSION: 1. No evidence of pulmonary embolism. 2. Redemonstration of mass in the left lobe of the liver suspicious for metastasis as well as pathologic upper abdominal lymph nodes consistent with metastasis. Electronically signed by: Robby Rahman MD 11/15/2020 4:29 PM [employer]GENERATION OPERATOR Vital Signs 11/15/20 11/15/20 11/15/20 12:47 14:00 15:00 Temperature 98.2 F Pulse Rate [ 80 91 H 87 left brachial] Respiratory 22 18 16 Rate Blood Pressure 110/77 95/57 111/52 [left brachial] O2 Sat by Pulse 98 95 94 L Oximetry Departure - Departure Clinical Impression: Liver cancer, primary, with metastasis from liver to other site, Elevated INR (international normalized ratio) due to prior anticoagulant medication ingestion Back pain Qualifiers: Back pain location: thoracic back pain Chronicity: acute Back pain laterality: left Qualified Code(s): M54.6 - Pain in thoracic spine Time of Disposition: 17:06 Disposition: Discharge to Home or Self Care Condition: Good Departure Forms: ED Discharge - Pt. Copy, Patient Portal Self Enrollment Instructions: What to Do When Your INR Is Too High , Upper Back Pain (DC), Liver Cancer (DC) Diet: resume usual diet Activity: walking as tolerated Referrals: Deepak Ramsay MD [Primary Care Provider] - 1-2 Days Home Medications: Ambulatory Orders Allopurinol [Zyloprim] 300 mg PO BEDTIME 01/09/15 Gabapentin [Neurontin] 300 mg PO BEDTIME 01/09/15 Insulin Glargine [Lantus Solostar] 20 unit SC BEDTIME 01/09/15 Triamterene & Hydrochlorothiaz [Triamterene/Hydrochloroth 37.5-25 mg] 37.5 tab PO BEDTIME 01/09/15 Warfarin Sodium 2.5 mg PO BEDTIME 01/09/15 Nitroglycerin 0.4 mg Tab [Nitrostat] 1 ea SL PRN PRN 07/14/15 Amiodarone HCl 200 mg PO BEDTIME 11/10/17 Lactobacillus [Acidophilus/l-Sporogenes] 1 tab PO BID #60 tab 02/09/19 Albuterol Sulfate Nebs 1 each .ROUTE ONCE 05/03/19 Cyanocobalamin Inj [Vitamin B-12 Inj] 1,000 mcg IM MONTHLY 05/03/19 Fluticasone Propionate (Nasal) [Flonase Allergy Relief] 50 mcg NA DAILY 05/03/19 Metoprolol Succinate [Toprol Xl] 50 mg PO BEDTIME 05/03/19 Potassium Chloride [Potassium Chloride ER] 10 meq PO BEDTIME 05/03/19 Tiotropium [place]-Olodaterol [Stiolto Respimat 2.5-2.5 Mcg/Act] 1 aer IN DAILY 05/03/19
--- NOTE | 2020-11-15 16:31 | CT ---
EXAM: CTA chest with contrast CLINICAL INDICATION: Chest pain, shortness of breath COMPARISON: None. TECHNIQUE: CTA of the chest was performed using contiguous axial 2.5mm postcontrast sections through the chest including IV contrast with 3-D reconstructions. This exam was performed according to our departmental dose-optimization program, which includes automated exposure control, adjustment of the mA and/or kV according to patient size and/or use of iterative reconstruction technique. FINDINGS: There is no evidence of pulmonary embolism. There are no findings to suggest aortic dissection. There are no enlarged mediastinal or hilar lymph nodes. Visualized portions of the upper abdominal structures again demonstrate a low-density mass in the left lobe of the liver measuring 4.9 x 6.0 cm as well as a cyst in the right lobe of the liver measuring 1.6 x 1.5 cm. Also redemonstrated are multiple enlarged lymph nodes in the gastrohepatic ligament region and upper abdomen, partially visualized. A trace left pleural effusion is noted. Mild foci of atelectasis are seen in both lower lobes. Scattered foci of atelectasis are noted in the upper lobes as well. No pulmonary nodules or masses are seen. There are no suspicious bone lesions within the osseous structures. IMPRESSION: 1. No evidence of pulmonary embolism. 2. Redemonstration of mass in the left lobe of the liver suspicious for metastasis as well as pathologic upper abdominal lymph nodes consistent with metastasis. Electronically signed by: Robby Rahman MD 11/15/2020 4:29 PM [facility]
[2020-11-15] MEDS ORDERED: HYDROCOD/APAP 7.5/325 (ER DISP) #3 TAB PO ONE (17:11)
[2020-11-15] MEDS ORDERED: HYDROcodone 7.5MG/APAP 325MG 1 EA TAB PO ONE (17:11)
[2020-11-15 18:38] VITALS: BP 109/63; TEMP 98.5; O2SAT 97
== END 2020-11-15 17:33 | disposition home or self-care (01) ==
LOC: ER 12:31
DX: M54.6 Pain in thoracic spine (principal); C22.8 Malignant neoplasm of liver, primary, unspecified as to type; C79.9 Secondary malignant neoplasm of unspecified site; D68.32 Hemorrhagic disorder due to extrinsic circulating anticoagulants; I48.91 Unspecified atrial fibrillation; R00.0 Tachycardia, unspecified; J44.9 Chronic obstructive pulmonary disease, unspecified; I10 Essential (primary) hypertension; E11.9 Type 2 diabetes mellitus without complications; Z79.01 Long term (current) use of anticoagulants; Z87.891 Personal history of nicotine dependence; Z79.4 Long term (current) use of insulin; Z79.899 Other long term (current) drug therapy; Z88.0 Allergy status to penicillin; Z88.2 Allergy status to sulfonamides; Z88.8 Allergy status to other drugs, medicaments and biological substances; Z88.7 Allergy status to serum and vaccine; Z88.6 Allergy status to analgesic agent
CPT/HCPCS: 36415; 71045; 71275; 80048; 80076; 82550; 82553; 83880; 84484; 85025; 85610; 85730; 93005; J1170; J2405